=== PATIENT | female | born 1930 | race Caucasian/White ===

== ENCOUNTER 2017-01-20 12:31 | Day surgery (SDC) | payer OTHER ==
[2017-01-20] MEDS ORDERED: MIDAZOLAM 2 MG/2 ML VIAL IVP ONE (12:43)
[2017-01-20] MEDS ORDERED: NS 500 ML IV ONE (12:43)
[2017-01-20] MEDS ORDERED: PROPOFOL 200 MG/20 ML VIAL IVP ONE (12:43)
[2017-01-20] MEDS ORDERED: fentaNYL 100 MCG/2 ML INJ IVP ONE (12:43)
[2017-01-20 13:28] LABS: INR 2.29 (0.83-1.16); PROTIME(PATIENT) 25.4 SEC (12.0-15.0)
[2017-01-20 13:37] LABS: ANION GAP 9 mEq/L (8-16); CALCIUM 9.6 mg/dL (8.5-10.4); CARBON DIOXIDE 25 mEq/l (22-31); CHLORIDE 96 mEq/L (97-110); GLOMERULAR FILTRATION RATE 52; GLUCOSE 112 mg/dL (70-100); POTASSIUM 4.4 mEq/L (3.5-5.2); SODIUM 130 mEq/L (134-144)
[2017-01-20] MEDS ORDERED: LIDOCAINE 1% 5 ML SDV ONE (13:50)
[2017-01-20] MEDS ORDERED: SUCCINYLCHOLINE CHLORIDE*ANESTHESIA ONLY*200 MG/10 ML SYR IVP ONE (13:51)
--- NOTE | 2017-01-20 14:36 | CPEKG ---
Heart Rate: 60 RR Interval: 1000 P-R Interval: 224 QRSD Interval: 112 QT Interval: 472 QTC Interval: 472 QRS [place]: -59 T Wave [place]: 121 EKG Severity - ABNORMAL ECG - EKG Impression: ATRIAL-PACED RHYTHM EKG Impression: LVH WITH IVCD, LAD AND SECONDARY REPOL ABNRM EKG Impression: PROBABLE INFERIOR INFARCT, OLD EKG Impression: ATRIAL PACING IS NEW IN COMPARISON TO PRIOR ECG Electronically Signed By: Mikel Hatfield 21-Jan-2017 17:01:30
--- NOTE | 2017-01-20 14:55 | CPIP ---
DATE OF PROCEDURE: 01/20/2017 INDICATIONS: Symptomatic atrial fibrillation. DESCRIPTION OF PROCEDURE: N.p.o. status was confirmed, informed consent obtained, and timeout perfo rmed. The patient has had INRs greater than 2 for several months, therefore we elected not to proce ed with KIM prior to her cardioversion. Her INR today was also therapeutic, greater than 2. Sedation was achieved by Dr. Pike of the anesthesia service. The patient received a single 200 joule synchronized shock which converted her from atrial fibrillation to atrial pacing ventricular sensed rhythm. Her pacemaker was interrogated before and after the procedure with normal device fun ction. We did reduce her upper atrial pacing rate from 110 beats per minute to 80 beats per minute. CONCLUSIONS: Successful direct current cardioversion. Patient is in stable condition. Continue lo w-dose amiodarone. Follow up with Dr. Osvaldo Amezcua in 1 week as scheduled. Discussed with the nona ent's daughter. /[id number]/MODL
== END 2017-01-20 16:29 | disposition home or self-care (01) ==
LOC: FCATH 12:31
PROVIDERS: ATTEND Internal Medicine Cardiovascular Disease
PROC: 5A2204Z Restoration of Cardiac Rhythm, Single (ICD-10-PCS; principal; 2017-01-20)
DX: I48.91 Unspecified atrial fibrillation (principal); Z95.0 Presence of cardiac pacemaker; Z79.01 Long term (current) use of anticoagulants
CPT/HCPCS: J0330; J2704

== ENCOUNTER 2017-05-10 11:37 | Emergency (ER) | payer OTHER ==
--- NOTE | 2017-05-10 12:08 | EDPHY ---
H & P Stated Complaint: fall Source: Patient, RN/MD Exam Limitations: No limitations - Personal History Tetanus Vaccine Date: within last 10 yrs - Medical/Surgical History Hx Asthma: Yes Hx Chronic Respiratory Disease: Yes Hx Diabetes: No Hx Cardiac Disease: Yes Hx Renal Disease: No Hx Cirrhosis: No Hx Alcoholism: No Hx HIV/AIDS: No Hx Splenectomy or Spleen Trauma: No Other PMH: Afib/SSS- pacer/HTN/Hypothyroid/cancer- breast/GB/bladder tuck/lt masectomey/HYST/TA, tonsillectomy, heart cath 09 clean - Social History Smoking Status: Never smoked HPI/ROS: CHIEF COMPLAINT: Fall, headache HISTORY OF PRESENT ILLNESS: Patient reports by EMS with reports of fall. She was walking in her room when she lost her balance and fell. She reports falling backwards, hit her head on the carpet. She does have a headache. It is primarily posterior. Radiates to the front. [id number]. She has minor neck pain. She is placed in a C-collar by EMS. She has had no vomiting. No changes in vision. She says she has difficulty thinking at this time. No chest or back pain. No abdominal pain. She does have skin tears to both arms of the nasal bridge. She takes Coumadin for atrial fibrillation. She has no complaints of pain anywhere else other than with C-collar is bothering her. She is seen at time of arrival and no acute distress. REVIEW OF SYSTEMS: Ten systems reviewed and are negative unless otherwise noted in the HPI PERTINENT MEDICAL HISTORY: Atrial fibrillation on Coumadin SOCIAL HISTORY: Lives in independent living by herself EXAMINATION General Appearance: Alert, no distress Head: normocephalic, atraumatic. No Meza sign. No hematoma or depression. Eyes: Pupils equal and round, no conjunctival pallor or injection ENT, Mouth: Mucous membranes moist Neck: C-collar in place. Trachea is midline. Respiratory: Lungs are clear to auscultation. No wheezing, rhonchi or crackles. Cardiovascular: Regular rate with regular rhythm. Pulses intact distally symmetrically Gastrointestinal: Abdomen is soft and nontender Back: Kyphotic appearance. No crepitus, step-off or deformity. No bony tenderness of the thoracic or lumbar spine Neurological: GCS 15. Cranial nerves 2-12 grossly intact. A&O. No pronator drift Skin: Warm and dry, no rash. Multiple skin tears over the right forearm and left elbow that are superficial and non repairable. There is a superficial abrasion to the nasal bridge. No exposure of the bone or cartilage. Extremities: No bony tenderness of the extremities. Ranging all 4 extremities symmetrically to 1 other Psychiatric: Mood and affect normal DIFFERENTIAL DIAGNOSES: Including but not limited to closed head injury, intracranial hemorrhage, basilar skull fracture, skull fracture, concussion, skin tears, hematoma MDM: 12:00 p.m. Mechanical fall with closed head injury. The patient does take Coumadin for atrial fibrillation. She has abrasion to the forehead, skin tear to the right forearm, skin tear to left elbow. Resolve minor laceration to the nasal bridge. CT scans of the head and cervical spine and have been ordered and she remains in a C-collar. I have also ordered a chest x-ray. She is in no acute distress with mild hypertension 12:55 p.m. Notified by radiologist Dr. Springer. CT scans of the head and C-spine revealed chronic changes but no acute findings. Laboratory studies thus far reveal a mild hyponatremia, consistent with previous. She also has a subtherapeutic INR for her atrial fibrillation 1:10 p.m. I have re-evaluated the patient. Her daughter is at bedside now. I updated him regarding the CT findings of the chest x-ray interpretation by me. I also re-examine her nasal laceration as it has been irrigated. Superficial laceration that I have closed with skin glue without complication. We discussed attempting to ambulate her here in the emergency department to determine her disposition. She and her daughter are comfortable with this plan. 1:35 p.m. Patient has ambulated successfully here. She is stable for discharge home. Both the patient and her daughter her comfortable with this plan as well. She will follow up with primary care physician next week. Return to the emergency department for subsequent falls or any headache. She is discharged home stable condition. PROCEDURE: Laceration repair Consent: Verbal Location: Nasal bridge Length of repair: 0.75 cm Complexity: Simple Layer involvement: Single Anesthesia: None Irrigation: Extensive Debridement: No Procedure description: Following good anesthesia, the wound was copiously irrigated. Wound bed was explored and there is no foreign body noted. Wound borders were approximated well with good hemostasis. Tolerated well without complication. Suture/Staple material: Skin glue, Dermabond Wound care: Routine as discussed. avoid any topical agents to the skin glue site SUPERVISION: Patient was evaluated in conjunction with the supervising physician. Please see their note for details. (Los Auguste) Constitutional: Initial Vital Signs Temperature (C) 97.7 F 05/10/17 11:48 Heart Rate 71 05/10/17 11:48 Respiratory Rate 16 05/10/17 11:48 Blood Pressure 197/106 H 05/10/17 11:48 O2 Sat (%) 96 05/10/17 11:48 O2 Delivery Mode Room Air Allergies/Adverse Reactions: ciprofloxacin HCl [From Cipro] Allergy (Intermediate, Verified 07/31/15 11:48) sulfamethoxazole [From Bactrim] Allergy (Intermediate, Verified 07/31/15 11:48) trimethoprim [From Bactrim] Allergy (Intermediate, Verified 07/31/15 11:48) levofloxacin [From Levaquin in D5W] Allergy (Verified 07/31/15 11:48) Home Medications: Medication Instructions Recorded Famotidine [Pepcid 20 MG (*)] 20 mg PO BID PRN 07/29/12 Levothyroxine [Synthroid 112 mcg 112 mcg PO DAILY06 07/29/12 (*)] Multivitamins [Multivitamin (OTC)] 1 each PO DAILY@12 07/29/12 Albuterol [Proventil Inhaler HFA 2 puffs IH Q4 PRN 12/25/14 (*)] Beclomethasone Qvar 40 [Qvar 40 2 puffs IH BID 12/25/14 (*)] Acetaminophen [Tylenol] 500 mg PO Q6 PRN 07/31/15 Amiodarone HCl [Pacerone] 100 mg PO DAILY 07/31/15 Ascorbic Acid [Vitamin C 500 mg 500 mg PO DAILY@12 07/31/15 (*)] Cholecalciferol Vit D3 [Vitamin D3 1,000 units PO DAILY@07/31/15 (*)] Estradiol [Estradiol 1 MG (*)] 1 mg PO DAILY 07/31/15 Fluticasone Nasal [Flonase Nasal 1 sprays EACHNARE DAILY 07/31/15 [place]] Herbals/Supplements -Info Only 1 ea PO DAILY 07/31/15 Lisinopril [Zestril 5 mg (*)] 5 mg PO BID 07/31/15 Warfarin Sodium [Coumadin 2.5MG 2.5 mg PO TH@1600 07/31/15 (*)] Warfarin Sodium [Coumadin 5MG (*)] 5 mg PO SUMOTUWGIOVANNYA@1600 07/31/15 Medical Decision Making - Diagnostics Imaging Results: Imaging Impressions Head CT 05/10/17 11:57 Impression: 1. No acute intracranial findings. 2. Diffuse cerebral atrophy with periventricular and subcortical low attenuation consistent with chronic microvascular ischemic gliosis. Findings discussed with Los Auguste PA-C, 05/10/2017, at 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 If there is persistent pain or neurologic deficit, consider MRI and/or flexion and extension views if clinically indicated. Findings discussed with Los Auguste PA-C, 05/10/2017, at 1253 hours. Chest X-Ray 05/10/17 12:02 Impression: No acute findings in the chest. Other Provider: PHYSICIAN DOCUMENTATION: The patient was evaluated and managed by the Physician Scratcher and myself. I have reviewed the chart and agree with the findings and plan of care as documented. In addition, I examined the patient myself at 1215. History confirmed as mechanical fall going backwards hitting her head, on Coumadin for atrial fibrillation. Physical findings as follows: Alert, some posterior midline neck tenderness, extraocular motion intact, fluent speech. Plan for head CT scanning with trauma on Coumadin. 1337: Patient ambulated with walker, CT reviewed with the daughter including previous on PACs. Cervical spine clinically cleared by myself at this time. I am the secondary supervising physician. (Beto Hercules) - Data Points Laboratory Results: Laboratory Results 05/10/17 12:00 05/10/17 12:00 05/10/17 05/10/17 05/10/17 12:00 12:00 12:00 WBC 5.36 10^3/uL 10^3/uL (3.80-9.50) RBC 4.47 10^6/uL 10^6/uL (4.18-5.33) Hgb 14.6 g/dL g/dL (12.6-16.3) Hct 42.5 % % (38.0-47.0) MCV 95.1 fL fL (81.5-99.8) MCH 32.7 pg pg (27.9-34.1) MCHC 34.4 g/dL g/dL (32.4-36.7) RDW 13.0 % % (11.5-15.2) Plt Count 256 10^3/uL 10^3/uL (150-400) PT 21.0 SEC H SEC (12.0-15.0) INR 1.80 H (0.83-1.16) APTT 33.6 SEC SEC (23.0-38.0) Sodium 128 mEq/L L mEq/L (134-144) Potassium 4.2 mEq/L mEq/L (3.5-5.2) Chloride 93 mEq/L L mEq/L (97-110) Carbon Dioxide 23 mEq/l mEq/l (22-31) Anion Gap 12 mEq/L mEq/L (8-16) BUN 15 mg/dL mg/dL (7-23) Creatinine 0.9 mg/dL mg/dL (0.6-1.0) Estimated GFR 59 Glucose 119 mg/dL H mg/dL (70-100) Calcium 9.6 mg/dL mg/dL (8.5-10.4) Medications Given: Discontinued Medications Diphtheria/Tetanus/Acell Pertussis (Boostrix) 0.5 ml IM .ONCE ONE Stop: 05/10/17 12:17 Last Admin: 05/10/17 12:49 Dose: 0.5 ml Departure - Departure Disposition: Home, Routine, Self-Care Clinical Impression: Warfarin-induced coagulopathy Closed head injury Qualifiers: Encounter type: initial encounter Qualified Code(s): S09.90XA - Unspecified injury of head, initial encounter Cervical spine degeneration Qualifiers: 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 Return here for any headache, chest pain dizziness or syncope Referrals: Patient,NotPresent [Unknown] - As per Instructions Leila Capps MD [Primary Care Provider] - As per Instructions
[2017-05-10 12:13] LABS: HEMATOCRIT 42.5 % (38.0-47.0); HEMOGLOBIN 14.6 g/dL (12.6-16.3); MEAN CELL HEMOGLOBIN 32.7 pg (27.9-34.1); MEAN CELL HEMOGLOBIN CONCENTR. 34.4 g/dL (32.4-36.7); MEAN CELL VOLUME 95.1 fL (81.5-99.8); RED BLOOD CELL COUNT 4.47 10^6/uL (4.18-5.33)
[2017-05-10] MEDS ORDERED: TDAP ADULT 0.5 ML INJ (BOOSTRIX) IM ONE (12:16)
[2017-05-10 12:22] LABS: INR 1.8 (0.83-1.16)
[2017-05-10 12:23] LABS: APTT 33.6 SEC (23.0-38.0)
[2017-05-10 12:25] LABS: ANION GAP 12 mEq/L (8-16); CALCIUM 9.6 mg/dL (8.5-10.4); CARBON DIOXIDE 23 mEq/l (22-31); CHLORIDE 93 mEq/L (97-110); CREATININE 0.9 mg/dL (0.6-1.0); GLOMERULAR FILTRATION RATE 59; GLUCOSE 119 mg/dL (70-100); POTASSIUM 4.2 mEq/L (3.5-5.2); SODIUM 128 mEq/L (134-144)
[2017-05-10] MEDS ORDERED: SKIN ADHESIVE (DERMABOND) 1 EACH TP ONE (13:06)
[2017-05-10 14:07] VITALS: BP 162/101; PULSE 68; RESP 20; TEMP 98.4; O2SAT 99
== END 2017-05-10 14:07 | disposition home or self-care (01) ==
LOC: EDUNIT#
PROC: 09QKXZZ Repair Nasal Mucosa and Soft Tissue, External Approach (ICD-10-PCS; principal; 2017-05-10)
DX: S09.90XA Unspecified injury of head, initial encounter (principal); M47.812 Spondylosis without myelopathy or radiculopathy, cervical region; D68.9 Coagulation defect, unspecified; J45.909 Unspecified asthma, uncomplicated; I10 Essential (primary) hypertension; S01.21XA Laceration without foreign body of nose, initial encounter; Z79.01 Long term (current) use of anticoagulants; Z85.3 Personal history of malignant neoplasm of breast; Z23 Encounter for immunization; W01.198A Fall on same level from slipping, tripping and stumbling with subsequent striking against other object, initial encounter; Y99.8 Other external cause status; Y93.01 Activity, walking, marching and hiking

== ENCOUNTER 2017-05-23 17:42 | Inpatient (IN) | payer OTHER ==
[2017-05-23] MEDS ORDERED: fentaNYL 100 MCG/2 ML INJ IVP ONE (17:52)
[2017-05-23] MEDS ORDERED: NS 1,000 ML IV ONE (17:52)
--- NOTE | 2017-05-23 17:54 | EDPHY ---
H & P HPI/ROS: HPI CHIEF COMPLAINT: Limited trauma alert, mechanical trip and fall, on Coumadin HISTORY OF PRESENT ILLNESS: This patient 86-year-old female, significant past medical history atrial fibrillation, pacemaker, hyponatremia, she presents emergency room is limited trauma + trauma alert by EMS. She lives independently. She fell unwitnessed in her kitchen. With head strike. No LOC. She is complaining of left lateral hip pain. And a posterior headache. She denies neck pain, chest pain, shortness of breath. Denies abdominal pain. Main complaint left hip pain. Reported to me she tripped and fell or slipped in the kitchen. Upon arrival here in emergency room she has a GCS 15, she is alert or x4, she has left externally rotated short-leg. Past Medical History: Atrial fibrillation, reactive airway disease, hyponatremia Past Surgical History: Left chest pacemaker Social History: Denies daily use drugs alcohol tobacco products, lives independently. Family History: Noncontributory ROS REVIEW OF SYSTEMS: A comprehensive 10 point review of systems is otherwise negative aside from elements mentioned in the history of present illness. Exam Constitutional appears well nontoxic triage nursing summary reviewed, vital signs reviewed, awake/alert. Eyes normal conjunctivae and sclera, EOMI, PERRLA. HENT head/neck: In cervical spine immobilization, no midline cervical spine pain or step-offs, head atraumatic, no large hematoma or laceration, normal inspection, atraumatic, moist mucus membranes, no epistaxis, neck supple/ no meningismus, no raccoon eyes. Respiratory clear to auscultation bilaterally, normal breath sounds, no respiratory distress, no wheezing. Cardiovascular rate normal, regular rhythm, no murmur, no edema, distal pulses normal. Gastrointestinal soft, non-tender, no rebound, no guarding, normal bowel sounds, no distension, no pulsatile mass. Genitourinary no CVA tenderness. Musculoskeletal left leg; neurovascular intact distally good distal pulse, warm extremity, is externally rotated and shortened. She does have tender palpation over the left lateral hip, no midline vertebral tenderness, full range of motion, no calf swelling, no tenderness of extremities, no meningismus , good pulses, neurovascularly intact. Skin skin tear noted to left elbow. However elbow has full range of motion no bony crepitus, pink, warm, & dry, no rash, skin atraumatic. Neurologic awake, alert and oriented x 3, AAOx3, moves all 4 extremities equally, motor intact, sensory intact, CN II-XII intact, normal cerebellar, normal vision, normal speech. Psychiatric normal mood/affect. Heme/Lymph/Immune no lymphadenopathy. Differential Diagnosis: Includes but is not limited to in a particular order, multiple contusions, soft tissue injury, intracranial bleed, skull fracture, closed head injury, head bleed on Coumadin, left hip fracture. Medical Decision Making: Plan for this patient full ivf embryologist, EKG, IV establishment, IV fentanyl 50 mcg for pain control, CT head for trauma, on Coumadin, CT cervical spine, chest x-ray, left hip x-ray, left elbow x-ray. Re-evaluation: CT scan of the head without contrast . The results of the study are negative for acute traumatic in The study was read by Dr. Springer I viewed the images myself on the PACS system. CT scan of the cervical spine without contrast . The results of the study are negative for acute traumatic. The study was read by Dr. Springer. I viewed the images myself on the PACS system. ED x-ray chest: Pacemaker left chest, otherwise no acute traumatic injury. ED x-ray left hip intratrochanteric hip fracture. Interpreted by myself. ED x-ray left elbow: Negative for acute fracture. Do this patient's left hip fracture. I will consult Orthopedics. This patient will need to be admitted to the hospitalist service. 1840: Spoke with Trauma Surgery Dr. Cabral. Spoke with Agatha Montoya, all cough Orthopedics with Dr. Hola Montoya. They will see the patient. Make NPO at midnight. Most like it popped tomorrow. Needs medical clearance from hospitalist service anesthesia. INR elevated. I spoke with Trauma surgery Dr. Flores. He will see the patient. I have ordered this patient 2.5 mg IV vitamin K. NPO at midnight. Patient will be admitted to the hospitalist service for a left hip fracture. She has no other significant traumatic injury on exam. EKG interpretation by me on record in [facility] system. Impression time of EKG 1841, atrially paced rhythm rate of 63. MO Interval 220. Otherwise unremarkable EKG. 1849: I did update the daughter at bedside understands she has a hip fracture. Orthopedics been consult Trauma surgery is been consult. Hospitalist has been consulted. Patient be admitted for left hip fracture. Source: Patient - Personal History Tetanus Vaccine Date: within last 10 yrs - Medical/Surgical History Hx Asthma: Yes Hx Chronic Respiratory Disease: Yes Hx Diabetes: No Hx Cardiac Disease: Yes Hx Renal Disease: No Hx Cirrhosis: No Hx Alcoholism: No Hx HIV/AIDS: No Hx Splenectomy or Spleen Trauma: No Other PMH: Afib/SSS- pacer/HTN/Hypothyroid/cancer- breast/GB/bladder tuck/lt masectomey/HYST/TA, tonsillectomy, heart cath 09 clean - Social History Smoking Status: Never smoked Allergies/Adverse Reactions: ciprofloxacin HCl [From Cipro] Allergy (Intermediate, Verified 05/23/17 18:13) sulfamethoxazole [From Bactrim] Allergy (Intermediate, Verified 05/23/17 18:13) trimethoprim [From Bactrim] Allergy (Intermediate, Verified 05/23/17 18:13) levofloxacin [From Levaquin in D5W] Allergy (Verified 05/23/17 18:13) Home Medications: Medication Instructions Recorded Famotidine [Pepcid 20 MG (*)] 20 mg PO BID PRN 07/29/12 Levothyroxine [Synthroid 112 mcg 112 mcg PO DAILY06 07/29/12 (*)] Multivitamins [Multivitamin (OTC)] 1 each PO DAILY@12 07/29/12 Albuterol [Proventil Inhaler HFA 2 puffs IH Q4 PRN 12/25/14 (*)] Beclomethasone Qvar 40 [Qvar 40 2 puffs IH BID 12/25/14 (*)] Acetaminophen [Tylenol] 500 mg PO Q6 PRN 07/31/15 Amiodarone HCl [Pacerone] 100 mg PO DAILY 07/31/15 Ascorbic Acid [Vitamin C 500 mg 500 mg PO DAILY@07/31/15 (*)] Cholecalciferol Vit D3 [Vitamin D3 1,000 units PO DAILY@07/31/15 (*)] Estradiol [Estradiol 1 MG (*)] 1 mg PO DAILY 07/31/15 Fluticasone Nasal [Flonase Nasal 1 sprays EACHNARE DAILY 07/31/15 [place]] Herbals/Supplements -Info Only 1 ea PO DAILY 07/31/15 Lisinopril [Zestril 5 mg (*)] 5 mg PO BID 07/31/15 Warfarin Sodium [Coumadin 2.5MG 2.5 mg PO TH@1600 07/31/15 (*)] Warfarin Sodium [Coumadin 5MG (*)] 5 mg PO SUMOTUWGIOVANNYA@1600 07/31/15 Medical Decision Making - Diagnostics Imaging Results: Imaging Impressions Cervical Spine CT 05/23/17 17:51 Impression: Stable CT cervical spine since May 10, 2017,with no acute posttraumatic abnormality identified. If symptoms persist and clinical suspicion warrants, consider MRI. Findings discussed with Aubrey Peck MD, 05/23/2017, at [address] 05/23/17 17:51 Impression: 1. No acute intracranial findings. 2. Diffuse cerebral atrophy with periventricular and subcortical low attenuation consistent with chronic microvascular ischemic gliosis. - Data Points Laboratory Results: Laboratory Results 05/23/17 18:11 05/23/17 18:11 05/23/17 05/23/17 05/23/17 18:11 18:11 18:11 WBC 6.75 10^3/uL 10^3/uL (3.80-9.50) RBC 4.20 10^6/uL 10^6/uL (4.18-5.33) Hgb 13.9 g/dL g/dL (12.6-16.3) Hct 40.1 % % (38.0-47.0) MCV 95.5 fL fL (81.5-99.8) MCH 33.1 pg pg (27.9-34.1) MCHC 34.7 g/dL g/dL (32.4-36.7) RDW 13.3 % % (11.5-15.2) Plt Count 224 10^3/uL 10^3/uL (150-400) MPV 8.9 fL fL (8.7-11.7) Neut % (Auto) 77.7 % H % (39.3-74.2) Lymph % (Auto) 13.8 % L % (15.0-45.0) Rains % (Auto) 6.4 % % (4.5-13.0) Eos % (Auto) 0.7 % % (0.6-7.6) Baso % (Auto) 0.7 % % (0.3-1.7) Nucleat RBC Rel Count 0.0 % % (0.0-0.2) Absolute Neuts (auto) 5.24 10^3/uL 10^3/uL (1.70-6.50) Absolute Lymphs (auto) 0.93 10^3/uL L 10^3/uL (1.00-3.00) Absolute Monos (auto) 0.43 10^3/uL 10^3/uL (0.30-0.80) Absolute Eos (auto) 0.05 10^3/uL 10^3/uL (0.03-0.40) Absolute Basos (auto) 0.05 10^3/uL 10^3/uL (0.02-0.10) Absolute Nucleated RBC 0.00 10^3/uL 10^3/uL (0-0.01) Immature Gran % 0.7 % % (0.0-1.1) Immature Gran # 0.05 10^3/uL 10^3/uL (0.00-0.10) PT 20.7 SEC H SEC (12.0-15.0) INR 1.77 H (0.83-1.16) APTT 30.9 SEC SEC (23.0-38.0) Sodium 128 mEq/L L mEq/L (134-144) Potassium 4.0 mEq/L mEq/L (3.5-5.2) Chloride 93 mEq/L L mEq/L (97-110) Carbon Dioxide 26 mEq/l mEq/l (22-31) Anion Gap 9 mEq/L mEq/L (8-16) BUN 17 mg/dL mg/dL (7-23) Creatinine 0.9 mg/dL mg/dL (0.6-1.0) Estimated GFR 59 Glucose 144 mg/dL H mg/dL (70-100) Calcium 9.5 mg/dL mg/dL (8.5-10.4) Troponin I < 0.012 ng/mL ng/mL (0-0.034) Medications Given: Discontinued Medications Fentanyl (Sublimaze) 50 mcg IVP EDNOW ONE Stop: 05/23/17 17:53 Last Admin: 05/23/17 18:05 Dose: 50 mcg Sodium Chloride (Ns) 1,000 mls @ 0 mls/hr IV ONCE ONE; Wide Open PRN Reason: Protocol Stop: 05/23/17 17:53 Last Admin: 05/23/17 18:39 Dose: 1,000 mls Departure - Departure Disposition: [facility] Inpatient Acute Clinical Impression: Hip fracture Qualifiers: Encounter type: initial encounter Fracture type: closed Laterality: left Qualified Code(s): S72.002A - Fracture of unspecified part of neck of left femur , initial encounter for closed fracture Condition: Fair
[2017-05-23 18:30] LABS: % IMMATURE GRANULYOCYTES 0.7 % (0.0-1.1); ABSOLUTE IMMATURE GRANULOCYTES 0.05 10^3/uL (0.00-0.10); ADD DIFF? NO; ADD MORPH? NO; ADD SCAN? NO; ATYPICAL LYMPHOCYTE FLAG 10 (0-99); FRAGMENT RBC FLAG 0 (0-99); HEMATOCRIT 40.1 % (38.0-47.0); HEMOGLOBIN 13.9 g/dL (12.6-16.3); LEFT SHIFT FLG 0 (0-99); LIPEMIA HEMOLYSIS FLAG 90 (0-99); MEAN CELL HEMOGLOBIN 33.1 pg (27.9-34.1); MEAN CELL HEMOGLOBIN CONCENTR. 34.7 g/dL (32.4-36.7); MEAN CELL VOLUME 95.5 fL (81.5-99.8); MEAN PLATELET VOLUME 8.9 fL (8.7-11.7); PLATELET CLUMPS FLAG 0 (0-99); PLATELET COUNT 224 10^3/uL (150-400); RED CELL DISTRIBUTION WIDTH 13.3 % (11.5-15.2)
[2017-05-23 18:36] LABS: INR 1.77 (0.83-1.16); PROTIME(PATIENT) 20.7 SEC (12.0-15.0)
[2017-05-23 18:37] LABS: ANION GAP 9 mEq/L (8-16); APTT 30.9 SEC (23.0-38.0); CALCIUM 9.5 mg/dL (8.5-10.4); CARBON DIOXIDE 26 mEq/l (22-31); CHLORIDE 93 mEq/L (97-110); CREATININE 0.9 mg/dL (0.6-1.0); GLOMERULAR FILTRATION RATE 59; GLUCOSE 144 mg/dL (70-100); SODIUM 128 mEq/L (134-144)
[2017-05-23] MEDS ORDERED: ONDANSETRON DISINTEGRATING 4 MG TAB PO PRN (18:38)
[2017-05-23] MEDS ORDERED: ONDANSETRON 4 MG/2 ML VIAL IVP PRN (18:38)
[2017-05-23] MEDS ORDERED: PHYTONADIONE 2.5 MG in NS 50 ML IV ONE (18:39)
--- NOTE | 2017-05-23 18:44 | CPEKG ---
Heart Rate: 63 RR Interval: 952 P-R Interval: 220 QRSD Interval: 118 QT Interval: 436 QTC Interval: 447 QRS [place]: -61 T Wave [place]: 104 EKG Severity - ABNORMAL ECG - EKG Impression: ATRIAL-PACED RHYTHM EKG Impression: LVH WITH IVCD, LAD AND SECONDARY REPOL ABNRM Electronically Signed By: Aubrey Peck 23-May-2017 20:59:09
[2017-05-23] MEDS ORDERED: NS 1,000 ML IV SCH (18:45)
[2017-05-23 18:49] LABS: TROPONIN I < 0.012 ng/mL (0-0.034)
--- NOTE | 2017-05-23 19:59 | PDCONSULT ---
Political Geographer Note: Trauma Service Consult CC: L hip pain HPI: 86 y/o female living independently has been falling more frequently. Today she lost her balance and fell to her left side striking her head, left elbow and left hip. She was brought to [facility] ED as a LTA+. She reports left hip pain and is experiencing some urinary and fecal urgency. She denies LOC, MCCLOUD, visual disturbances. She denies paresthesias/weakness. She does report increasing loss of balance. PMH: pacemaker, HTN, reactive airway disease allergies: Quinilones, Sulfa meds: Amiodarone, Coumadin, Lisinopril, Albuterol, Famotidine non-smoker, denies EtOH SH: here with her daughter, Linda, who is a FP PA ROS: denies chest pain, nausea, MCCLOUD, visual disturbances, back pain, weakness, She is experiencing urinary and fecal urgency PE: pleasant elderly female in mild distress HEENT: no cervical spine tenderness trachea midline, NCAT Lungs: clear w/out wheezing CVS: IRR w/ 3-4/6 HSM Abd: soft/no focal tenderness tender left hip/LLE internal rotation pulses: F +2/+2 DP +1/+1 PT 0/0 neuro: O x 3, no focal motor sensory defecits, gait testing not possible skin: abrasion left elbow/skin on back intact wbc 6.7 Hgb 13.9 Hct 40% plat 224K PT 20.7 INR 1.7 Na+ 128 K+ 4.0 Cl 93 Co2 26 glucose 144 creat. 0.9 Imaging reviewed on PACS: no acute cervical spine fracture/DDD extensive-no change compare to 05/10/17 Left elbow no fracture Left Hip IT fracture/no obvious pelvic fracture Imp: 1. Left hip fracture s/p fall at home 2. A-fib 3. pacemaker 4. HTN 5. reactive airway disease 6.anticoagulation 7. Hyponatremia Rec: Ortho Consult/reverse Coumadin with vit K SCD's, may need Kimberlyn Cabral MD, FACS
[2017-05-23] MEDS ORDERED: ALBUTEROL 60 PUFFS/8 GM MDI IH PRN (20:00)
[2017-05-23] MEDS ORDERED: hydrALAZINE 10 MG TAB PO PRN (20:28)
[2017-05-23] MEDS ORDERED: ALBUTEROL 200 PUFFS/18 GM MDI IH PRN (20:34)
--- NOTE | 2017-05-23 20:58 | GHP ---
[f rep st] HISTORY AND PHYSICAL DATE OF ADMISSION: 05/23/2017 CHIEF COMPLAINT: Left hip pain. HISTORY OF PRESENT ILLNESS: An 86-year-old female with a history of atrial fibrillation status post permanent pacemaker placement, who was in her kitchen today and stumbled and fell. Patient obtaine d a left intertrochanteric hip fracture and was brought to the emergency department for evaluation. In the ED, the patient is complaining of severe left-sided hip pain. Denies any preceding dizzines s, palpitations, chest pain, shortness of breath. Currently denies nausea or abdominal discomfort. Denies any headache, recent lower extremity edema, recent subjective fevers or chills. PAST MEDICAL HISTORY: 1. Atrial fibrillation on anticoagulation status post permanent pacemaker placement. 2. Chronic diastolic heart failure. 3. Hypertension. 4. Hypothyroidism. 5. 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 SOCIAL HISTORY: Negative for tobacco, alcohol, or illicit drugs. FAMILY HISTORY: Negative for thyroid dysfunction. REVIEW OF SYSTEMS: A 10-point review of systems is negative with the exception of that reported in the HPI. PHYSICAL EXAMINATION: VITAL SIGNS: Blood pressure 204/97, heart rate 68, respiratory rate 18, 95% on room air, 36.4. GENERAL: This is a very pleasant, elderly female, lying flat in bed. HEENT: N otable for dry mucous membranes. Eye exam is negative for any icterus. CARDIAC: Patient is regula r rate and rhythm. Systolic murmur is appreciated. PULMONARY: Patient has good respiratory effort , is clear to auscultation on anterior auscultation. GASTROINTESTINAL: Positive bowel sounds. ABD OMEN: Soft and nontender in all 4 quadrants. MUSCULOSKELETAL: No lower extremity edema is appreci ated. Patient has pain on passive range of motion of her left lower extremity. NEUROLOGIC: She is alert and oriented x3. PSYCHIATRIC: She is pleasant and cooperative on interview and examination. LABORATORY AND X-RAY DATA: Hip x-ray, which I personally reviewed and interpreted, shows a left-kaycee ed femoral neck fracture. Noncontrast CT of the head shows no acute intracranial findings. Chest x -ray, which I personally reviewed and interpreted, shows no acute edema. White count 6.7. INR 1.77 . Sodium 128, creatinine 0.9. Troponin less than 0.012. ASSESSMENT AND PLAN: This is an 86-year-old female presenting status left femur fracture. 1. Acute left femur fracture. Patient will be made n.p.o. after midnight for intraoperative fixati on by Dr. Montoya in the morning. She has received 2.5 mg of vitamin K to reverse her chronic ant icoagulation and will continue p.r.n., p.o., and IV pain medications preoperatively. 2. Atrial fibrillation. Patient is currently rate controlled. Again, has received some vitamin K reversal for her anticoagulation. We can resume none postoperatively. 3. Hyponatremia, suspect may be hypovolemic in nature. Patient received normal saline bolus in the emergency department. Will start normal saline maintenance as she will be n.p.o. after midnight. Can recheck her BMP in the morning. 4. Pulmonary fibrosis. Will continue patient's home pulmonary toilet, which includes QVAR and p.r. n. albuterol. 5. Uncontrolled hypertension. The patient's systolic blood pressures are very high in the emergenc y department and I suspect secondary to pain. She is quite uncomfortable during my evaluation. We will continue her home dosing of blood pressure medications with a p.r.n. hydralazine. Ideally, I w ould like to see how her pressures settle out after pain control is improved. 6. Prophylaxis. Holding for the operating room. 7. Diet. N.p.o. after midnight for surgery. 8. Disposition. Expecting greater than 2 midnights as the patient will require intraoperative fixa tion of her fracture and then postop recovery. I discussed the case with the emergency room madeleine partida and patient will be triaged to the medical-surgical floor for care. /[id number]/MODL
[2017-05-23] MEDS ORDERED: LISINOPRIL 2.5 MG TAB PO SCH (21:00)
[2017-05-23] MEDS: HYDROCODONE/APAP 5/325 TAB PO PRN (21:07)
[2017-05-23] MEDS: HYDROmorphONE/DILAUDID 1 MG/ML SYR IVP PRN (21:07)
[2017-05-23] MEDS: LISINOPRIL 5 MG TAB PO SCH (22:14)
[2017-05-24] MEDS: HYDROCODONE/APAP 5/325 TAB PO PRN ×4 (00:38→22:50)
[2017-05-24] MEDS: BECLOMETHASONE QVAR 40 MDI IH SCH ×3 (00:43→20:20)
[2017-05-24 05:19] LABS: % IMMATURE GRANULYOCYTES 0.6 % (0.0-1.1); ABSOLUTE IMMATURE GRANULOCYTES 0.05 10^3/uL (0.00-0.10); ADD DIFF? NO; ADD MORPH? NO; ADD SCAN? NO; ATYPICAL LYMPHOCYTE FLAG 0 (0-99); FRAGMENT RBC FLAG 0 (0-99); HEMATOCRIT 36.5 % (38.0-47.0); HEMOGLOBIN 12.5 g/dL (12.6-16.3); LEFT SHIFT FLG 0 (0-99); LIPEMIA HEMOLYSIS FLAG 90 (0-99); MEAN CELL HEMOGLOBIN 32.8 pg (27.9-34.1); MEAN CELL HEMOGLOBIN CONCENTR. 34.2 g/dL (32.4-36.7); MEAN CELL VOLUME 95.8 fL (81.5-99.8); MEAN PLATELET VOLUME 9.3 fL (8.7-11.7); PLATELET CLUMPS FLAG 0 (0-99); PLATELET COUNT 198 10^3/uL (150-400); RED BLOOD CELL COUNT 3.81 10^6/uL (4.18-5.33); RED CELL DISTRIBUTION WIDTH 13.2 % (11.5-15.2)
[2017-05-24 05:27] LABS: INR 1.72 (0.83-1.16); PROTIME(PATIENT) 20.2 SEC (12.0-15.0)
[2017-05-24 05:31] LABS: ANION GAP 9 mEq/L (8-16); CALCIUM 9.2 mg/dL (8.5-10.4); CARBON DIOXIDE 22 mEq/l (22-31); CHLORIDE 99 mEq/L (97-110); CREATININE 0.8 mg/dL (0.6-1.0); GLOMERULAR FILTRATION RATE > 60; GLUCOSE 109 mg/dL (70-100); POTASSIUM 4.4 mEq/L (3.5-5.2); SODIUM 130 mEq/L (134-144)
[2017-05-24] MEDS: LEVOTHYROXINE 112 MCG TAB PO SCH (06:20)
[2017-05-24 07:08] LABS: COLOR YELLOW; LEUKOCYTE ESTERASE,URINE 3+ (NEGATIVE); NITRITE,URINE NEGATIVE (NEGATIVE)
[2017-05-24 07:18] LABS: BACTERIA 3+ /hpf (NONE SEEN); WBC,URINE 50-182 /hpf (0-3); YEAST PRESENT /hpf (NONE SEEN)
--- NOTE | 2017-05-24 08:45 | SOAPPROG ---
SOAP Progress Note Assessment/Plan: Assessment: Plan: Subjective: hd 2 l femoral neck fx from fall neck non tender awake and alert lungs clear, heart nml s1s2 no m no carotid bruit abd soft l foot warm, excellent pulse. inr still 1.72 this am. will likely need ffp prior to surgery. plan: orif l hip today. Objective: Vital Signs Temp Pulse Resp BP Pulse Ox 37.1 C 60 15 144/77 H 98 05/24/17 04:00 05/24/17 04:00 05/24/17 04:00 05/24/17 04:00 05/24/17 04:00 Laboratory Results 05/24/17 04:20 05/24/17 04:20 05/23/17 05/24/17 05/25/17 05:59 05:59 05:59 Intake Total 700 Output Total 900 Balance -200 PT 20.2 SEC (12.0-15.0) H 05/24/17 04:20 INR 1.72 (0.83-1.16) H 05/24/17 04:20 ICD10 Worksheet Patient Problems: Problems Problem Status Onset Hip fracture Acute Atrial fibrillation Acute
[2017-05-24] MEDS: AMIODARONE HCL 200 MG TAB PO SCH (08:54)
[2017-05-24] MEDS: LISINOPRIL 5 MG TAB PO SCH ×2 (08:55→20:18)
[2017-05-24] MEDS ORDERED: AMIODARONE HCL 100 MG PO SCH (09:00)
--- NOTE | 2017-05-24 10:54 | GCON ---
[f rep st] CONSULTATION ORTHOPEDIC CONSULTATION REFERRING PHYSICIAN: Lisa Garcia MD REASON FOR CONSULTATION: For evaluation of a left hip fracture. HISTORY OF PRESENT ILLNESS: The patient is an 86-year-old female, who has a history of atrial fibri llation, with a pacemaker, who fell, was unable to walk, has complaint of left hip pain, was brought into the emergency room. Hit her head and was evaluated by the trauma service. Denies any pain in any other extremity. PAST MEDICAL HISTORY: Significant for atrial fibrillation, diastolic heart failure, hypertension, h ypothyroidism, pulmonary fibrosis. SOCIAL HISTORY: She is negative for tobacco, alcohol or illicit drugs. FAMILY HISTORY: Noncontributory. PHYSICAL EXAMINATION: GENERAL: Patient is in no acute distress, pleasant and cooperative with the exam. EXTREMITIES: Left lower extremity revealed shortened and externally rotated. She has pain w ith gentle log roll. She is neurovascularly intact with brisk capillary refill. IMAGING: X-rays are reviewed, which show a displaced left femoral neck fracture. At this time discussed benefits of operative and nonoperative intervention with the patient, includi ng bleeding, infection, damage to nerve and vessels, and need for further surgery, as well as hip garay rgery risks such as dislocation, fracture and leg length discrepancy. The patient expressed underst anding. We will obtain consent prior to surgery. At this time, plan for a left total hip arthropla sty when patient is clear, her INR is 1.7 currently. She needs to continue her vitamin K supplement ation, in order to try to get that down. Hopefully, closer to 1.3 prior to proceeding with surgery. Tentative plan will be to take the person to surgery on 05/25/2017, for a left total hip, pending her lab results and clearance by hospitalist service. /[id number]/MODL
[2017-05-24] MEDS ORDERED: PHYTONADIONE 2.5 MG/2.5 ML ORAL UDL PO ONE (13:05)
--- NOTE | 2017-05-24 14:44 | HOSPPROG ---
Hospitalist Progress Note Assessment/Plan: Patient is an 86-year-old female with a history of atrial fibrillation status post pacemaker placement. She was brought into the emergency room for further evaluation after she fell in her kitchen. Was noted that she had an acute left femur fracture. Today is my 1st encounter with the patient. Chart reviewed. * Acute left femur fracture to go to OR once her INR is less than 1.3 * atrial fibrillation oral anticoagulation on hold. Rate controlled pacer in place * pulmonary fibrosis thought to be secondary to amiodarone *Hyponatremia will check labs in a.m. * uncontrolled hypertension on JESSICA/suspect much of her pain is causing elevation in bp *hypothyroidism: Synthroid *Chronic diastolic hear failure doesn't appear to be in failure room air *dvt prophylaxis: pumps and teds *Plan: fluids tonight, OR in the morning/ if INR is elevated in a.m., can order FFP prior too OR Subjective: Lizett has no complaints/ resting comfortably. Objective: Vital Signs Temp Pulse Resp BP Pulse Ox 36.7 C 61 12 171/80 H 92 05/24/17 08:49 05/24/17 12:27 05/24/17 12:27 05/24/17 12:27 05/24/17 12:27 Laboratory Results 05/24/17 04:20 05/24/17 04:20 05/23/17 05/24/17 05/25/17 05:59 05:59 05:59 Intake Total 700 Output Total 900 700 Balance -200 -700 PT 20.2 SEC (12.0-15.0) H 05/24/17 04:20 INR 1.72 (0.83-1.16) H 05/24/17 04:20 - Physical Exam Constitutional: not in pain, uncomfortable Eyes: PERRL Ears, Nose, Mouth, Throat: hard of hearing Cardiovascular: regular rate and rhythym Respiratory: no respiratory distress Gastrointestinal: normoactive bowel sounds Genitourinary: lundberg in urethra Skin: warm Musculoskeletal: other (left leg shortened and externally rotated) Neurologic: AAOx3 Psychiatric: interacting appropriately, not anxious ICD10 Worksheet Patient Problems: Problems Problem Status Onset Hip fracture Acute Atrial fibrillation Acute
[2017-05-24] MEDS: hydrALAZINE 20 MG/ML VIAL IVP PRN (16:32)
[2017-05-24] MEDS: FAMOTIDINE 20 MG TAB PO SCH (17:21)
[2017-05-25] MEDS: hydrALAZINE 20 MG/ML VIAL IVP PRN (05:00)
[2017-05-25 05:15] LABS: INR 1.3 (0.83-1.16); PROTIME(PATIENT) 16.2 SEC (12.0-15.0)
[2017-05-25 05:37] LABS: ANION GAP 10 mEq/L (8-16); CALCIUM 9.3 mg/dL (8.5-10.4); CARBON DIOXIDE 22 mEq/l (22-31); CHLORIDE 96 mEq/L (97-110); CREATININE 0.8 mg/dL (0.6-1.0); GLOMERULAR FILTRATION RATE > 60; GLUCOSE 84 mg/dL (70-100); POTASSIUM 3.9 mEq/L (3.5-5.2); SODIUM 128 mEq/L (134-144)
[2017-05-25] MEDS ORDERED: ROPIVACAINE 0.2% 80 MG, EPINEPHrine 0.2 MG, KETOROLAC TROMETHAMINE 30 MG in BAG 0 ML IU ONE (06:00)
[2017-05-25] MEDS ORDERED: ceFAZolin 2 GM/DEXTROSE 100 ML IV ONE (06:00)
[2017-05-25] MEDS ORDERED: TRANEXAMIC ACID 3,000 MG in NS 50 ML IRR ONE (06:00)
[2017-05-25] MEDS ORDERED: DEXAMETHASONE 4 MG/ML VIAL IVP ONE (06:00)
[2017-05-25] MEDS: LEVOTHYROXINE 112 MCG TAB PO SCH (06:02)
[2017-05-25] MEDS ORDERED: VANCOMYCIN 1 GM VIAL ONE ×2 (06:04→07:30)
[2017-05-25] MEDS ORDERED: TRANEXAMIC ACID 3,000 MG/50 ML BAG IRR ONE (06:04)
[2017-05-25] MEDS: BECLOMETHASONE QVAR 40 MDI IH SCH ×2 (07:23→20:28)
[2017-05-25] MEDS ORDERED: DEXAMETHASONE 4 MG/ML VIAL ONE (07:32)
[2017-05-25] MEDS ORDERED: CEFAZOLIN 2 GM/DEXTROSE/100 ML BAG IV ONE (07:32)
[2017-05-25] MEDS ORDERED: LR 1,000 ML IV ONE (07:37)
[2017-05-25] MEDS: AMIODARONE HCL 200 MG TAB PO SCH (07:49)
[2017-05-25] MEDS ORDERED: fentaNYL 100 MCG/2 ML INJ ONE (08:07)
[2017-05-25] MEDS ORDERED: MIDAZOLAM 2 MG/2 ML VIAL ONE (08:07)
[2017-05-25] MEDS ORDERED: PROPOFOL/EMULSION 500 MG/50 ML BOTTLE IV ONE (08:08)
[2017-05-25] MEDS: LISINOPRIL 5 MG TAB PO SCH ×2 (08:26→21:07)
--- NOTE | 2017-05-25 08:55 | PDANEPAE ---
ANE History of Present Illness fx left hip no loc ANE Past Medical History - Cardiovascular History Hx Arrhythmias: Yes Hx Chest Pain: No Hx Coronary Artery / Peripheral Vascular Disease: No Hx CHF / Valvular Disease: No Cardiovascular History Comment: atrial fib pacer in place and working, on anticoagulation - Pulmonary History Hx COPD: Yes Hx Asthma/Reactive Airway Disease: No Hx Recent Upper Respiratory Infection: No Hx Oxygen in Use at Home: Yes O2 in Use at Home (L/minute): 2 Hx Sleep Apnea: No Sleep Apnea Screening Result - Last Documented: Negative - Endocrine History Hx Diabetes: No - Chronic Pain History Chronic Pain: No ANE Review of Systems - Exercise capacity Exercise capacity: <4 METS - Pacemaker Pacemaker Electrician Journeyman Wireman: [employer] (for pacer check after surgery) Pacemaker Model: 5820 Date Pacemaker Last Checked: 3-1/2 months ago ANE Patient History - Allergies Allergies/Adverse Reactions: ciprofloxacin HCl [From Cipro] Allergy (Intermediate, Verified 05/23/17 18:13) sulfamethoxazole [From Bactrim] Allergy (Intermediate, Verified 05/23/17 18:13) trimethoprim [From Bactrim] Allergy (Intermediate, Verified 05/23/17 18:13) levofloxacin [From Levaquin in D5W] Allergy (Verified 05/23/17 18:13) - Home Medications Home Medications: Levothyroxine [Synthroid 112 mcg (*)] 112 mcg PO DAILY06 07/29/12 [Last Taken ] Multivitamins [Multivitamin (OTC)] 1 each PO DAILY@12 07/29/12 [Last Taken 05/23] Albuterol [Proventil Inhaler HFA (*)] 2 puffs IH Q4 PRN 12/25/14 [Last Taken Unknown] Beclomethasone Qvar 40 [Qvar 40 (*)] 2 puffs IH BID 12/25/14 [Last Taken 1 Day Ago] Acetaminophen [Tylenol] 500 mg PO Q6 PRN 07/31/15 [Last Taken 07/30/15] Amiodarone HCl [Pacerone] 100 mg PO DAILY 07/31/15 [Last Taken 05/23/17] Ascorbic Acid [Vitamin C 500 mg (*)] 500 mg PO DAILY@12 07/31/15 [Last Taken ] Cholecalciferol Vit D3 [Vitamin D3 (*)] 1,000 units PO DAILY@12 07/31/15 [Last Taken 05/23/17] Estradiol [Estradiol 1 MG (*)] 1 mg PO DAILY 07/31/15 [Last Taken 05/23/17] Herbals/Supplements -Info Only 1 ea PO DAILY 07/31/15 [Last Taken Unknown] Warfarin Sodium [Coumadin 2.5MG (*)] 2.5 mg PO MOWEFR 07/31/15 [Last Taken 07/27] Warfarin Sodium [Coumadin 5MG (*)] 5 mg PO SUTUTHSA 07/31/15 [Last Taken 1 Day Ago] Famotidine [Pepcid] 5 mg PO DAILY@18 05/23/17 [Last Taken 05/22/17] Lisinopril [Zestril 2.5 mg (*)] 2.5 mg PO BID 05/23/17 [Last Taken 05/23/17] - NPO status NPO Since - Liquids (Date): 05/24/17 NPO Since - Liquids (Time): 00:01 NPO Since - Solids (Date): 05/23/17 NPO Since - Solids (Time): 22:00 - Smoking Hx Smoking Status: Never smoked ANE Labs/Vital Signs - Labs Result Diagrams: 05/24/17 04:20 05/25/17 04:27 - Vital Signs Blood Pressure: 94/78 Heart Rate: 75 Respiratory Rate: 12 O2 Sat (%): 94 Height: 165.1 cm Weight: 54.431 kg
[2017-05-25] MEDS ORDERED: NALOXONE HCL 0.4 MG/ML INJ IVP PRN (09:06)
[2017-05-25] MEDS ORDERED: HYDROmorphONE/DILAUDID 1 MG/ML SYR IVP PRN ×2 (09:08→09:13)
[2017-05-25] MEDS ORDERED: MAGNESIUM HYDROXIDE 30 ML UDCUP PO PRN (09:29)
[2017-05-25] MEDS ORDERED: LACTULOSE 20 GM/30 ML UDCUP PO PRN (09:29)
[2017-05-25] MEDS ORDERED: PROMETHAZINE HCL 25 MG SUPPR PR PRN (09:29)
[2017-05-25] MEDS ORDERED: diphenhydrAMINE 25 MG CAP PO PRN (09:29)
[2017-05-25] MEDS ORDERED: PROMETHAZINE HCL 25 MG/ML INJ IVP PRN (09:29)
[2017-05-25] MEDS ORDERED: METOCLOPRAMIDE 10 MG/2 ML VIAL IVP PRN (09:29)
[2017-05-25] MEDS ORDERED: BISACODYL 10 MG SUPP PR PRN (09:29)
[2017-05-25] MEDS ORDERED: DIPHENOXYLATE/ATROPINE LOMOTIL 1 TAB PO PRN (09:29)
--- NOTE | 2017-05-25 09:29 | POSTOPPROG ---
Post Op Note Date of Operation: 05/25/17 Surgeon: Ciera Montoya Reservoir Engineer: Agatha Montoya PAc Anesthesiologist: Lissett Anesthesia: GET(General Endotracheal) Pre-op Diagnosis: L femoral neck fx displaced Post-op Diagnosis: same Indication: pain Procedure: L BRIJESH Findings: fx femoral neck displaced Inf/Abcess present in the surg proc area at time of surgery?: No EBL: 100-500
[2017-05-25] MEDS ORDERED: HYDROmorphONE/DILAUDID 1 MG/ML SYR ONE (09:53)
--- NOTE | 2017-05-25 10:12 | GOP ---
[f rep st] OPERATIVE REPORT DATE OF OPERATION: 05/23/2017 SURGEON: Asif Montoya MD CONCRETE BUCKET HOOKER: REAL Taylor ANESTHESIA: General. PREOPERATIVE DIAGNOSIS: Left displaced femoral neck fracture. POSTOPERATIVE DIAGNOSIS: Left displaced femoral neck fracture. PROCEDURE PERFORMED: Total hip arthroplasty with x-ray. FINDINGS: ESTIMATED BLOOD LOSS: 200 cc. INDICATIONS: The patient has progressively worsening arthritis of the hip which has failed medical management. The patient understands the treatment options including continued non-operative care and has selected surgical intervention. The patient has decided to undergo total hip arthroplasty via the direct anterior approach, understanding the risks of the procedure including , but not limited to, neurovascular injury, infection, persistent pain, component wear and loosening, deep venous thrombosis, pulmonary embolism, limb length inequality, hip instability (including dislocation), and intra-operative fractures. DESCRIPTION OF PROCEDURE: After proper identification of the patient including verification and marking the surgical site, the patient was brought to the operating room and placed in the supine position. All bony prominences were well padded. Anesthesia was induced without complication and intravenous prophylactic antibiotics were administered prior to skin incision. The operative leg was placed in the Trumpf Arch table extension and the well leg in a Yellofin leg rowland. The patient was prepped and draped in the usual sterile fashion. The C-arm was draped for intra-operative fluoroscopy to check acetabular position, femoral component position including leg length and femoral offset. Attention was then drawn to surgical exposure of the hip. An incision was made with a #10 Bard Jed blade starting 3 cm lateral and 3 cm distal to the anterior superior iliac spine measuring 8-10 cm and coursing distally toward the greater trochanter. The skin and subcutaneous tissues were divided sharply down to the fascia perla. The fascia perla was incised in line with the skin incision exposing the underlying tensor fascia perla muscle. The muscle was bluntly elevated from the fascia and the first extracapsular Cobra retractor was placed laterally at the junction of the superior femoral neck and greater trochanter. The lateral femoral circumflex vessels were identified, cauterized , and divided with the Aquamantys bipolar cautery. The deep investing fascia of the TFL was divided to allow proper mobilization of the muscle preventing damage during the retraction. The reflected head of the rectus femoris muscle was elevated off the anterior hip capsule and a medial Cobra retractor was placed just proximal to the lesser trochanter. The anterior capsulotomy was made sharply from the superolateral acetabulum to the saddle junction of the superior femoral neck and greater trochanter, then coursing inferomedial towards the lesser trochanter. The retractors were then placed in the intracapsular position for femoral neck osteotomy. Corresponding to pre-operative templating, the osteotomy was made with the oscillating saw carefully protecting the greater trochanter and soft tissues. The femoral head was removed from the acetabulum with a corkscrew and confirmed to be a femoral neck fracture. The Arch table extension was then placed in 40 degrees external rotation. Attention was then drawn to the acetabular preparation. After placement of the anterior and posterior Cobra retractors outside the labrum and intracapsular, the circumferential labrum was removed sharply. The foveal contents were then removed and hemostasis obtained with cautery. The first reamer selected was sized using the removed femoral head. Reaming began with medialization and then commenced in 2 mm increments at 45 degrees of abduction and 15 degrees of anteversion using fluoroscopic navigation. Reaming ceased 1 mm less than the definitive acetabular component and corresponded to the pre-operative templating. The final acetabular component was inserted using fluoroscopy to achieve proper orientation yielding excellent purchase and stability in the acetabulum. The final acetabular liner was then placed and its seating confirmed. Attention was then turned to the femur. The Arch table extension was placed in extension and adduction, delivering the osteotomized femoral neck into the wound. A 2-pronged femoral elevator was placed at the calcar and another at the tip of the greater trochanter. The posterolateral capsule was released with cautery allowing mobilization of the femur lateral and anterior for preparation. The external rotators were visualized and preserved. A curette and rongeur were used to open the starting point for broaching. Serial broaching started with the #0 broach and ended with the broach that exhibited excellent fit in the proximal femur. A change in pitch during mallet strikes was accompanied by the inability to advance the broach any further. The trial reduction was performed and fluoroscopic navigation was utilized to check limb length. Adjustments were made to equalize limb length accordingly. After the final trials were accepted they were removed and the wound was copiously lavaged. The femoral component was seated to the same depth as the final broach and the femoral head was impacted onto the clean trunnion. The hip was then reduced for the final time and once more fluoroscopy was used to check that limb length equality was achieved. The wound was irrigated and closed in layers, the fascia perla with 2-0 Quill, the subcutaneous tissue with 2-0 Quill, and the skin with Dermabond. Sterile dressings were applied. Final sharps and sponge counts were accurate. The patient was then transferred to a hospital bed and brought to the recovery room in stable condition. IMPLANTS: Accolade II, size 5 at 127. Acetabular component a 54 mm Tritanium. The liner is a Trident X3, 36 mm. The head is a Biolox Delta 36 mm, +5. /[id number]/MODL MTDD
[2017-05-25] MEDS: NS 1,000 ML IV SCH (12:00)
--- NOTE | 2017-05-25 12:27 | HOSPPROG ---
Hospitalist Progress Note Assessment/Plan: Patient is an 86-year-old female with a history of atrial fibrillation status post pacemaker placement. She was brought into the emergency room for further evaluation after she fell in her kitchen. Was noted that she had an acute left femur fracture. Today is my 1st encounter with the patient. Chart reviewed. * Acute left femur fracture to OR this am POD #0 INR is less than 1.3 * atrial fibrillation oral anticoagulation on hold. Rate controlled pacer in place, interrogated, stable will bridge when ok with ortho * pulmonary fibrosis thought to be secondary to amiodarone *Hyponatremia follow labs will check urine studies * uncontrolled hypertension on JESSICA/suspect much of her pain is causing elevation in bp better today *hypothyroidism: Synthroid *Chronic diastolic hear failure doesn't appear to be in failure room air *dvt prophylaxis: pumps and teds start when ok with ortho *Plan: cont support care start bridge when ok with ortho PT/OT eval will likely need SNF Subjective: No specific issues. Feeling fine. No pain. Objective: Vital Signs Temp Pulse Resp BP Pulse Ox 36.5 C 75 16 131/73 H 98 05/25/17 12:06 05/25/17 12:06 05/25/17 12:06 05/25/17 12:06 05/25/17 12:06 Laboratory Results 05/24/17 04:20 05/25/17 04:27 05/24/17 05/25/17 05/26/17 05:59 05:59 05:59 Intake Total 700 1200 860 Output Total 900 2100 200 Balance -200 -900 660 PT 16.2 SEC (12.0-15.0) H 05/25/17 04:27 INR 1.30 (0.83-1.16) H 05/25/17 04:27 - Physical Exam Constitutional: appears nourished, not in pain, chronically ill appearing Eyes: PERRL, anicteric sclera, EOMI Ears, Nose, Mouth, Throat: moist mucous membranes, hearing normal, ears appear normal Cardiovascular: irregularly irregular, No JVD, No tachycardia Respiratory: no respiratory distress, no rales or rhonchi, clear to auscultation Gastrointestinal: No tenderness, No ascites, No guarding Skin: warm, normal color, No erythema Musculoskeletal: no joint effusions, pain with ROM, muscular tenderness, generalized weakness Neurologic: AAOx3 Psychiatric: interacting appropriately, not anxious, not encephalopathic ICD10 Worksheet Patient Problems: Problems Problem Status Onset Atrial fibrillation Acute Hip fracture Acute
--- NOTE | 2017-05-25 13:25 | SOAPPROG ---
SOAP Progress Note Assessment/Plan: Assessment: 86 FEMALE SP FALL IN SURGERY THIS AM FOR LEFT ENDOPROSTHESIS Plan:WILL FOLLOW 05/25/17 13:24 Objective: Vital Signs Temp Pulse Resp BP Pulse Ox 36.5 C 82 18 116/83 H 97 05/25/17 13:05 05/25/17 13:05 05/25/17 13:05 05/25/17 13:05 05/25/17 13:05 Laboratory Results 05/24/17 04:20 05/25/17 04:27 05/24/17 05/25/17 05/26/17 05:59 05:59 05:59 Intake Total 700 1200 860 Output Total 900 2100 200 Balance -200 -900 660 PT 16.2 SEC (12.0-15.0) H 05/25/17 04:27 INR 1.30 (0.83-1.16) H 05/25/17 04:27 ICD10 Worksheet Patient Problems: Problems Problem Status Onset Hip fracture Acute Atrial fibrillation Acute
[2017-05-25] MEDS: ceFAZolin 2 GM/DEXTROSE 100 ML IV SCH ×2 (14:41→21:10)
[2017-05-25] MEDS: ACETAMINOPHEN 325 MG TAB PO PRN (14:47)
[2017-05-25] MEDS ORDERED: WARFARIN SODIUM 5 MG TAB PO SCH (16:00)
[2017-05-25] MEDS: FAMOTIDINE 20 MG TAB PO SCH (18:03)
[2017-05-25] MEDS: SENNOSIDES/DOCUSATE SODIUM TAB PO SCH (21:06)
[2017-05-26] MEDS: LEVOTHYROXINE 112 MCG TAB PO SCH (04:17)
[2017-05-26 05:00] LABS: HEMATOCRIT 31.9 % (38.0-47.0); HEMOGLOBIN 11.1 g/dL (12.6-16.3)
[2017-05-26 05:13] LABS: INR 1.37 (0.83-1.16); PROTIME(PATIENT) 16.9 SEC (12.0-15.0)
[2017-05-26 05:15] LABS: ANION GAP 7 mEq/L (8-16); CALCIUM 8.8 mg/dL (8.5-10.4); CARBON DIOXIDE 20 mEq/l (22-31); CHLORIDE 95 mEq/L (97-110); CREATININE 0.8 mg/dL (0.6-1.0); GLOMERULAR FILTRATION RATE > 60; GLUCOSE 100 mg/dL (70-100); POTASSIUM 4.2 mEq/L (3.5-5.2); SODIUM 122 mEq/L (134-144)
[2017-05-26] MEDS: BECLOMETHASONE QVAR 40 MDI IH SCH ×2 (08:43→20:07)
[2017-05-26] MEDS: SENNOSIDES/DOCUSATE SODIUM TAB PO SCH ×2 (09:49→21:56)
[2017-05-26] MEDS: LISINOPRIL 5 MG TAB PO SCH ×2 (09:49→21:57)
[2017-05-26] MEDS: AMIODARONE HCL 200 MG TAB PO SCH (09:49)
[2017-05-26] MEDS: ACETAMINOPHEN 325 MG TAB PO PRN ×2 (09:56→18:25)
--- NOTE | 2017-05-26 10:53 | SOAPPROG ---
SOAP Progress Note Assessment/Plan: Assessment/Plan: 86 Y F c hx afib, PPM s/p fall, L displaced femoral neck fracture, now s/p L total hip arthroplasty. No new complaints. Care per medicine and ortho. Will d/w Dr. Flores. S: some nausea. pain only at Left hip. O gen: alert, nad, looking at lunch menu heent: pupils equal, round, ncat pulm: ctab, no wrr cor: irregular abd: soft, nt ext: wwp 05/26/17 10:53 Objective: Vital Signs Temp Pulse Resp BP Pulse Ox 36.5 C 75 16 158/86 H 90 L 05/26/17 08:00 05/26/17 08:00 05/26/17 08:00 05/26/17 09:49 05/26/17 08:00 Laboratory Results 05/26/17 04:15 05/26/17 04:15 05/25/17 05/26/17 05/27/17 05:59 05:59 05:59 Intake Total 1200 3655 Output Total 2100 950 Balance -900 2705 PT 16.9 SEC (12.0-15.0) H 05/26/17 04:15 INR 1.37 (0.83-1.16) H 05/26/17 04:15 ICD10 Worksheet Patient Problems: Problems Problem Status Onset Hip fracture Acute Atrial fibrillation Acute
--- NOTE | 2017-05-26 11:13 | SOAPPROG ---
SOAP Progress Note Assessment/Plan: Assessment: Lizett is doing well POD 1 s/p L BRIJESH due to femoral neck fracture 1) pain management: pain is well controlled 2) VTe ppx: skilled nursing coumadin, recommend resuming coumadin. INR 1.37 today. do not recommend lovenox bridge 3) WBAT with FWW 4) hyponatremia: appreciate hospitalist recommendation 5) d/c planning: when medically stable, would benefit from SNF placement most likely. f/u with Dr. roca in 2-3 weeks postop Plan: 05/26/17 11:10 05/26/17 11:12 Subjective: Lizett is doing well today, denies SOB, chest pain and N/V. sleepy Objective: Vital Signs Temp Pulse Resp BP Pulse Ox 36.5 C 75 16 158/86 H 90 L 05/26/17 08:00 05/26/17 08:00 05/26/17 08:00 05/26/17 09:49 05/26/17 08:00 Laboratory Results 05/26/17 04:15 05/26/17 04:15 05/25/17 05/26/17 05/27/17 05:59 05:59 05:59 Intake Total 1200 3655 Output Total 2100 950 Balance -900 2705 PT 16.9 SEC (12.0-15.0) H 05/26/17 04:15 INR 1.37 (0.83-1.16) H 05/26/17 04:15 LLE: incision dressing is clean and dry, NVI, +pf/df ICD10 Worksheet Patient Problems: Problems Problem Status Onset Hip fracture Acute Atrial fibrillation Acute
--- NOTE | 2017-05-26 12:56 | HOSPPROG ---
Hospitalist Progress Note Assessment/Plan: Patient is an 86-year-old female with a history of atrial fibrillation status post pacemaker placement. She was brought into the emergency room for further evaluation after she fell in her kitchen. Was noted that she had an acute left femur fracture. * Acute left femur fracture POD #1 INR is less than 1.3 cont PT/OT * atrial fibrillation oral anticoagulation, restart coumadin. 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 Tired. No pain. Some nausea. Objective: Vital Signs Temp Pulse Resp BP Pulse Ox 36.6 C 61 13 127/62 H 100 05/26/17 12:01 05/26/17 12:01 05/26/17 12:01 05/26/17 12:01 05/26/17 12:01 Laboratory Results 05/26/17 04:15 05/26/17 04:15 05/25/17 05/26/17 05/27/17 05:59 05:59 05:59 Intake Total 1200 3655 Output Total 2100 950 Balance -900 2705 PT 16.9 SEC (12.0-15.0) H 05/26/17 04:15 INR 1.37 (0.83-1.16) H 05/26/17 04:15 - Physical Exam Constitutional: appears nourished, not in pain, chronically ill appearing Eyes: PERRL, anicteric sclera Ears, Nose, Mouth, Throat: moist mucous membranes, hearing normal, ears appear normal Cardiovascular: edema, No JVD Respiratory: no respiratory distress, reduced air movement Gastrointestinal: normoactive bowel sounds, No ascites Skin: warm, No abrasion Musculoskeletal: pain with ROM, generalized weakness Neurologic: AAOx3 Psychiatric: interacting appropriately, not anxious, not encephalopathic ICD10 Worksheet Patient Problems: Problems Problem Status Onset Atrial fibrillation Acute Hip fracture Acute
[2017-05-26] MEDS: WARFARIN SODIUM 2.5 MG TAB PO SCH (15:13)
[2017-05-26] MEDS: FAMOTIDINE 20 MG TAB PO SCH (18:24)
[2017-05-26] MEDS: CYCLOBENZAPRINE 10 MG TAB PO PRN (21:57)
[2017-05-26] MEDS: hydrALAZINE 20 MG/ML VIAL IVP PRN (22:07)
[2017-05-27] MEDS: HYDROCODONE/APAP 5/325 TAB PO PRN (00:40)
[2017-05-27] MEDS: HYDROmorphONE/DILAUDID 1 MG/ML SYR IVP PRN ×2 (02:06→06:28)
[2017-05-27] MEDS: LEVOTHYROXINE 112 MCG TAB PO SCH (04:26)
[2017-05-27 05:36] LABS: HEMATOCRIT 32.2 % (38.0-47.0); HEMOGLOBIN 11.4 g/dL (12.6-16.3)
[2017-05-27 05:46] LABS: INR 1.21 (0.83-1.16); PROTIME(PATIENT) 15.3 SEC (12.0-15.0)
[2017-05-27 06:01] LABS: ANION GAP 7 mEq/L (8-16); CALCIUM 8.8 mg/dL (8.5-10.4); CARBON DIOXIDE 21 mEq/l (22-31); CHLORIDE 94 mEq/L (97-110); CREATININE 0.8 mg/dL (0.6-1.0); GLOMERULAR FILTRATION RATE > 60; GLUCOSE 86 mg/dL (70-100); SODIUM 122 mEq/L (134-144)
[2017-05-27] MEDS: CYCLOBENZAPRINE 10 MG TAB PO PRN (06:28)
[2017-05-27] MEDS: BECLOMETHASONE QVAR 40 MDI IH SCH ×2 (08:58→21:24)
--- NOTE | 2017-05-27 09:45 | SOAPPROG ---
SOAP Progress Note Assessment/Plan: Assessment: pt with dislocation s/p BRIJESH rec closed reduction then abd pillow discussed with family and consent obtained from them as pt was slightly confused Plan: 05/27/17 09:44 05/27/17 09:45 Objective: Vital Signs Temp Pulse Resp BP Pulse Ox 36.1 C 60 16 116/51 L 99 05/27/17 09:33 05/27/17 09:33 05/27/17 09:33 05/27/17 09:33 05/27/17 09:33 Laboratory Results 05/27/17 05:24 05/27/17 05:24 05/26/17 05/27/17 05/28/17 05:59 05:59 05:59 Intake Total 3655 1250 Output Total 950 800 Balance 2705 450 PT 15.3 SEC (12.0-15.0) H 05/27/17 05:24 INR 1.21 (0.83-1.16) H 05/27/17 05:24 ICD10 Worksheet Patient Problems: Problems Problem Status Onset Hip fracture Acute Atrial fibrillation Acute
--- NOTE | 2017-05-27 09:46 | POSTOPPROG ---
Post Op Note Date of Operation: 05/27/17 Surgeon: Ciera Montoya Anesthesiologist: Simi Anesthesia: IV Sedation Pre-op Diagnosis: L BRIJESH dislocation Post-op Diagnosis: same Indication: pain Procedure: closed reduction left BRIJESH Inf/Abcess present in the surg proc area at time of surgery?: No
--- NOTE | 2017-05-27 10:16 | GOP ---
[f rep st] OPERATIVE REPORT DATE OF OPERATION: 05/27/2017 SURGEON: Asif Montoya MD ANESTHESIA: IV sedation. PREOPERATIVE DIAGNOSIS: Left hip total hip dislocation. POSTOPERATIVE DIAGNOSIS: Left hip total hip dislocation. PROCEDURE PERFORMED: Closed reduction, left total hip arthroplasty. FINDINGS: ESTIMATED BLOOD LOSS: Zero. INDICATIONS: Patient is an 86-year-old female who started having pain and difficulty ambulating las t night. On mechanism, patient states that she fell. There are no reports of this from the staff. Questionable historian from the patient. Risks and benefits were discussed with the patient and he r family and informed consent was obtained from her family for a closed reduction. DESCRIPTION OF PROCEDURE: The patient identified in the preoperative holding area. Her left lower extremity was marked. She was then brought back to the operating room. After induction of anesthes ia, time-out was obtained confirming patient, laterality, procedure, allergies and antibiotic status . I then performed a closed reduction of the left total hip without little difficulty. This was co nfirmed on fluoroscopic image. She was then brought to the PACU in good condition with a well perfu sed limb. The plan will be to place the patient in a hip abduction brace and pillow. She will be weightbearin g as tolerated. She will have posterior hip precautions. /[id number]/MODL
--- NOTE | 2017-05-27 10:58 | TRAUMAPN ---
Assessment/Plan: isolated hip fx s/p fall - no other trauma issues - trauma to sign off - call with questions. Objective: Vital Signs Temp Pulse Resp BP Pulse Ox 36.6 C 66 14 135/74 H 97 05/27/17 10:39 05/27/17 10:39 05/27/17 10:39 05/27/17 10:39 05/27/17 10:39 Laboratory Results 05/27/17 05:24 05/27/17 05:24 05/26/17 05/27/17 05/28/17 05:59 05:59 05:59 Intake Total 3655 1250 200 Output Total 950 800 0 Balance 2705 450 200 PT 15.3 SEC (12.0-15.0) H 05/27/17 05:24 INR 1.21 (0.83-1.16) H 05/27/17 05:24
[2017-05-27] MEDS ORDERED: fentaNYL 100 MCG/2 ML INJ ONE (11:06)
[2017-05-27] MEDS ORDERED: PROPOFOL 200 MG/20 ML VIAL ONE (11:07)
[2017-05-27] MEDS: AMIODARONE HCL 200 MG TAB PO SCH (11:11)
[2017-05-27] MEDS: LISINOPRIL 5 MG TAB PO SCH ×2 (11:11→21:00)
[2017-05-27 11:24] LABS: COLOR PALE YELLOW; LEUKOCYTE ESTERASE,URINE NEGATIVE (NEGATIVE); NITRITE,URINE NEGATIVE (NEGATIVE)
[2017-05-27] MEDS: SENNOSIDES/DOCUSATE SODIUM TAB PO SCH ×2 (13:02→20:59)
--- NOTE | 2017-05-27 13:21 | HOSPPROG ---
Hospitalist Progress Note Assessment/Plan: Patient is an 86-year-old female with a history of atrial fibrillation status post pacemaker placement. She was brought into the emergency room for further evaluation after she fell in her kitchen. Was noted that she had an acute left femur fracture. Reviewed with Dr Chacon. * Acute left femur fracture POD #2 cont PT/OT #Dislocation back to OR this am fixed new precautions * atrial fibrillation oral anticoagulation, restarted coumadin. 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 Some nausea. No other issues. Objective: Vital Signs Temp Pulse Resp BP Pulse Ox 36.4 C 72 12 131/78 H 95 05/27/17 13:02 05/27/17 13:02 05/27/17 13:02 05/27/17 13:02 05/27/17 13:02 Laboratory Results 05/27/17 05:24 05/27/17 05:24 05/26/17 05/27/17 05/28/17 05:59 05:59 05:59 Intake Total 3655 1250 200 Output Total 950 800 0 Balance 2705 450 200 PT 15.3 SEC (12.0-15.0) H 05/27/17 05:24 INR 1.21 (0.83-1.16) H 05/27/17 05:24 - Physical Exam Constitutional: no apparent distress, appears nourished, chronically ill appearing Eyes: PERRL, anicteric sclera, EOMI Ears, Nose, Mouth, Throat: moist mucous membranes, hearing normal, ears appear normal Cardiovascular: edema, No tachycardia, No bradycardia Respiratory: no respiratory distress, no rales or rhonchi, reduced air movement Gastrointestinal: normoactive bowel sounds, No tenderness, No ascites Skin: warm, abrasion, No mottled Musculoskeletal: no joint effusions, muscular tenderness, generalized weakness Neurologic: AAOx3 Psychiatric: not anxious, not encephalopathic, poor insight ICD10 Worksheet Patient Problems: Problems Problem Status Onset Atrial fibrillation Acute Hip fracture Acute
[2017-05-27] MEDS: ACETAMINOPHEN 500 MG TAB PO PRN ×2 (14:21→21:00)
[2017-05-27] MEDS: WARFARIN SODIUM 5 MG TAB PO SCH (14:21)
[2017-05-27] MEDS: FAMOTIDINE 20 MG TAB PO SCH (18:11)
[2017-05-28] MEDS: hydrALAZINE 20 MG/ML VIAL IVP PRN (01:16)
[2017-05-28] MEDS: ACETAMINOPHEN 500 MG TAB PO PRN ×2 (02:04→09:24)
[2017-05-28] MEDS: CYCLOBENZAPRINE 10 MG TAB PO PRN ×2 (02:08→11:17)
[2017-05-28 03:41] LABS: ANION GAP 7 mEq/L (8-16); CARBON DIOXIDE 22 mEq/l (22-31); CHLORIDE 97 mEq/L (97-110); CREATININE 0.8 mg/dL (0.6-1.0); GLOMERULAR FILTRATION RATE > 60; GLUCOSE 77 mg/dL (70-100); SODIUM 126 mEq/L (134-144)
[2017-05-28 04:53] LABS: INR 1.3 (0.83-1.16); PROTIME(PATIENT) 16.2 SEC (12.0-15.0)
[2017-05-28] MEDS: LEVOTHYROXINE 112 MCG TAB PO SCH (05:37)
--- NOTE | 2017-05-28 08:24 | HOSPPROG ---
Hospitalist Progress Note Assessment/Plan: Patient is an 86-year-old female with a history of atrial fibrillation status post pacemaker placement. She was brought into the emergency room for further evaluation after she fell in her kitchen. Was noted that she had an acute left femur fracture. 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 Objective: Vital Signs Temp Pulse Resp BP Pulse Ox 36.4 C 68 16 152/72 H 90 L 05/28/17 07:19 05/28/17 07:19 05/28/17 07:19 05/28/17 07:19 05/28/17 07:19 Laboratory Results 05/27/17 05:24 05/28/17 02:00 05/27/17 05/28/17 05/29/17 05:59 05:59 05:59 Intake Total 1250 800 Output Total 800 300 Balance 450 500 PT 16.2 SEC (12.0-15.0) H 05/28/17 04:19 INR 1.30 (0.83-1.16) H 05/28/17 04:19 - Physical Exam Constitutional: chronically ill appearing, uncomfortable Eyes: PERRL Ears, Nose, Mouth, Throat: hearing normal Cardiovascular: regular rate and rhythym Respiratory: no respiratory distress Gastrointestinal: normoactive bowel sounds Skin: warm Musculoskeletal: muscular tenderness, generalized weakness Neurologic: AAOx3 Psychiatric: interacting appropriately, anxious ICD10 Worksheet Patient Problems: Problems Problem Status Onset Hip fracture Acute Atrial fibrillation Acute
[2017-05-28] MEDS: AMIODARONE HCL 200 MG TAB PO SCH (09:22)
[2017-05-28] MEDS: SENNOSIDES/DOCUSATE SODIUM TAB PO SCH ×2 (09:23→22:22)
[2017-05-28] MEDS: POLYETHYLENE GLYCOL 3350 17 GM PKT PO PRN (09:24)
[2017-05-28] MEDS: LISINOPRIL 5 MG TAB PO SCH ×2 (09:24→22:21)
[2017-05-28] MEDS: BECLOMETHASONE QVAR 40 MDI IH SCH ×2 (10:02→23:20)
[2017-05-28] MEDS: WARFARIN SODIUM 2.5 MG TAB PO SCH (13:12)
[2017-05-28] MEDS: FAMOTIDINE 20 MG TAB PO SCH (17:03)
[2017-05-28] MEDS: ACETAMINOPHEN 500 MG TAB PO SCH ×2 (17:04→22:20)
[2017-05-28] MEDS: oxyCODONE IR 5 MG TAB PO PRN (18:36)
[2017-05-28] MEDS: METHOCARBAMOL 500 MG TAB PO PRN (22:21)
[2017-05-29] MEDS: oxyCODONE IR 5 MG TAB PO PRN ×3 (02:15→23:04)
[2017-05-29] MEDS: hydrALAZINE 20 MG/ML VIAL IVP PRN (02:16)
[2017-05-29] MEDS: METHOCARBAMOL 500 MG TAB PO PRN ×4 (02:49→22:32)
[2017-05-29 04:59] LABS: ABSOLUTE IMMATURE GRANULOCYTES 0.07 10^3/uL (0.00-0.10); ADD DIFF? NO; ADD MORPH? NO; ADD SCAN? NO; ATYPICAL LYMPHOCYTE FLAG 0 (0-99); FRAGMENT RBC FLAG 0 (0-99); HEMATOCRIT 32.1 % (38.0-47.0); LEFT SHIFT FLG 0 (0-99); LIPEMIA HEMOLYSIS FLAG 90 (0-99); MEAN CELL HEMOGLOBIN 32.5 pg (27.9-34.1); MEAN CELL HEMOGLOBIN CONCENTR. 34.3 g/dL (32.4-36.7); MEAN PLATELET VOLUME 8.8 fL (8.7-11.7); PLATELET CLUMPS FLAG 0 (0-99); PLATELET COUNT 229 10^3/uL (150-400); RED BLOOD CELL COUNT 3.38 10^6/uL (4.18-5.33); RED CELL DISTRIBUTION WIDTH 13.2 % (11.5-15.2)
[2017-05-29 05:08] LABS: INR 1.57 (0.83-1.16); PROTIME(PATIENT) 18.8 SEC (12.0-15.0)
[2017-05-29 05:16] LABS: ANION GAP 7 mEq/L (8-16); CALCIUM 8.5 mg/dL (8.5-10.4); CARBON DIOXIDE 23 mEq/l (22-31); CHLORIDE 96 mEq/L (97-110); CREATININE 0.7 mg/dL (0.6-1.0); GLOMERULAR FILTRATION RATE > 60; GLUCOSE 82 mg/dL (70-100); POTASSIUM 3.5 mEq/L (3.5-5.2); SODIUM 126 mEq/L (134-144)
[2017-05-29] MEDS: LEVOTHYROXINE 112 MCG TAB PO SCH (05:59)
[2017-05-29] MEDS: BECLOMETHASONE QVAR 40 MDI IH SCH ×2 (08:35→21:07)
[2017-05-29] MEDS: AMIODARONE HCL 200 MG TAB PO SCH (08:58)
[2017-05-29] MEDS: LISINOPRIL 5 MG TAB PO SCH ×2 (08:59→20:51)
[2017-05-29] MEDS: SENNOSIDES/DOCUSATE SODIUM TAB PO SCH ×2 (08:59→20:51)
[2017-05-29] MEDS: ACETAMINOPHEN 500 MG TAB PO SCH ×3 (08:59→21:29)
--- NOTE | 2017-05-29 10:06 | HOSPPROG ---
Hospitalist Progress Note Assessment/Plan: Patient is an 86-year-old female with a history of atrial fibrillation status post pacemaker placement. She was brought into the emergency room for further evaluation after she fell in her kitchen. Was noted that she had an acute left femur fracture. 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 Subjective: Lizett is c/o severe spasms in her right hip. Objective: Vital Signs Temp Pulse Resp BP Pulse Ox 36.4 C 70 12 140/75 H 98 05/29/17 07:39 05/29/17 08:39 05/29/17 08:39 05/29/17 08:59 05/29/17 08:39 Laboratory Results 05/29/17 04:35 05/29/17 04:35 05/28/17 05/29/17 05/30/17 05:59 05:59 05:59 Intake Total 800 650 Output Total 300 Balance 500 650 PT 18.8 SEC (12.0-15.0) H 05/29/17 04:35 INR 1.57 (0.83-1.16) H 05/29/17 04:35 - Physical Exam Constitutional: chronically ill appearing, uncomfortable, No no apparent distress, No not in pain Eyes: PERRL Ears, Nose, Mouth, Throat: hearing normal Cardiovascular: regular rate and rhythym Respiratory: no respiratory distress Gastrointestinal: normoactive bowel sounds Skin: warm, other (left hip with redness and swelling) Musculoskeletal: muscular tenderness Psychiatric: thought process linear, anxious ICD10 Worksheet Patient Problems: Problems Problem Status Onset Hip fracture Acute Atrial fibrillation Acute
[2017-05-29] MEDS ORDERED: NS 300 ML IV ONE (12:27)
[2017-05-29] MEDS: WARFARIN SODIUM 5 MG TAB PO SCH (13:47)
[2017-05-29] MEDS: DIAZEPAM 2 MG TAB PO PRN ×2 (13:49→21:29)
[2017-05-29] MEDS: FAMOTIDINE 20 MG TAB PO SCH (17:49)
[2017-05-29] MEDS ORDERED: CYCLOBENZAPRINE 10 MG TAB PO PRN (23:47)
[2017-05-30 04:52] LABS: INR 2.01 (0.83-1.16); PROTIME(PATIENT) 22.9 SEC (12.0-15.0)
[2017-05-30 04:56] LABS: ANION GAP 6 mEq/L (8-16); CALCIUM 8.8 mg/dL (8.5-10.4); CARBON DIOXIDE 24 mEq/l (22-31); CHLORIDE 96 mEq/L (97-110); CREATININE 0.8 mg/dL (0.6-1.0); GLOMERULAR FILTRATION RATE > 60; GLUCOSE 82 mg/dL (70-100); SODIUM 126 mEq/L (134-144)
[2017-05-30] MEDS: LEVOTHYROXINE 112 MCG TAB PO SCH (05:31)
[2017-05-30] MEDS: hydrALAZINE 20 MG/ML VIAL IVP PRN (05:31)
[2017-05-30] MEDS: DIAZEPAM 2 MG TAB PO PRN ×4 (06:01→22:45)
[2017-05-30] MEDS: SENNOSIDES/DOCUSATE SODIUM TAB PO SCH ×2 (08:06→20:58)
[2017-05-30] MEDS: LISINOPRIL 5 MG TAB PO SCH ×2 (08:06→20:56)
[2017-05-30] MEDS: ACETAMINOPHEN 500 MG TAB PO SCH ×3 (08:06→20:53)
[2017-05-30] MEDS: AMIODARONE HCL 200 MG TAB PO SCH (08:06)
[2017-05-30] MEDS: BECLOMETHASONE QVAR 40 MDI IH SCH ×2 (08:41→22:16)
[2017-05-30] MEDS: LIDOCAINE 5% 1 EA PATCH TD SCH ×3 (09:12→22:48)
--- NOTE | 2017-05-30 09:27 | HOSPPROG ---
Hospitalist Progress Note Assessment/Plan: Patient is an 86-year-old female with a history of atrial fibrillation status post pacemaker placement. She was brought into the emergency room for further evaluation after she fell in her kitchen. Was noted that she had an acute left femur fracture. 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 Objective: Vital Signs Temp Pulse Resp BP Pulse Ox 36.3 C 63 15 131/56 H 96 05/30/17 07:33 05/30/17 08:41 05/30/17 08:41 05/30/17 07:33 05/30/17 08:41 Laboratory Results 05/29/17 04:35 05/30/17 04:21 05/29/17 05/30/17 05/31/17 05:59 05:59 05:59 Intake Total 650 1300 Output Total 1150 Balance 650 150 PT 22.9 SEC (12.0-15.0) H 05/30/17 04:21 INR 2.01 (0.83-1.16) H 05/30/17 04:21 - Physical Exam Constitutional: uncomfortable, No not in pain Eyes: PERRL Ears, Nose, Mouth, Throat: hearing normal Respiratory: no respiratory distress Gastrointestinal: normoactive bowel sounds Skin: warm Musculoskeletal: muscular tenderness Neurologic: AAOx3 Psychiatric: anxious ICD10 Worksheet Patient Problems: Problems Problem Status Onset Hip fracture Acute Atrial fibrillation Acute
[2017-05-30] MEDS: WARFARIN SODIUM 2.5 MG TAB PO SCH (13:08)
[2017-05-30] MEDS: PATCH REMOVAL 1 EA PATCH TD SCH (13:26)
[2017-05-30] MEDS: METHOCARBAMOL 500 MG TAB PO SCH ×2 (14:44→20:57)
[2017-05-30] MEDS: FAMOTIDINE 20 MG TAB PO SCH (20:54)
[2017-05-30] MEDS ORDERED: GABAPENTIN 100 MG CAP PO SCH (21:00)
[2017-05-31] MEDS: oxyCODONE IR 5 MG TAB PO PRN ×2 (02:54→10:42)
[2017-05-31] MEDS: LEVOTHYROXINE 112 MCG TAB PO SCH (05:26)
[2017-05-31 05:50] LABS: INR 2.88 (0.83-1.16); PROTIME(PATIENT) 30.5 SEC (12.0-15.0)
[2017-05-31 05:56] LABS: ANION GAP 6 mEq/L (8-16); CALCIUM 8.3 mg/dL (8.5-10.4); CARBON DIOXIDE 22 mEq/l (22-31); CHLORIDE 95 mEq/L (97-110); CREATININE 0.7 mg/dL (0.6-1.0); GLOMERULAR FILTRATION RATE > 60; GLUCOSE 85 mg/dL (70-100); POTASSIUM 4.1 mEq/L (3.5-5.2); SODIUM 123 mEq/L (134-144)
--- NOTE | 2017-05-31 07:25 | SOAPPROG ---
SOAP Progress Note Assessment/Plan: Assessment: pt with dislocation s/p BRIJESH now reduced rec abd pillow when in bed pt c/o R hip pain and spasms has significant lumbar spine dz ANT and POST hip precautions Plan: 05/27/17 09:44 05/27/17 09:45 05/31/17 07:23 Objective: Vital Signs Temp Pulse Resp BP Pulse Ox 36.9 C 73 17 141/74 H 98 05/31/17 00:00 05/31/17 00:00 05/31/17 00:00 05/31/17 00:00 05/31/17 00:00 Laboratory Results 05/29/17 04:35 05/31/17 04:15 05/30/17 05/31/17 06/01/17 05:59 05:59 05:59 Intake Total 1300 800 Output Total 1150 Balance 150 800 PT 30.5 SEC (12.0-15.0) H 05/31/17 04:15 INR 2.88 (0.83-1.16) H 05/31/17 04:15 ICD10 Worksheet Patient Problems: Problems Problem Status Onset Hip fracture Acute Atrial fibrillation Acute
[2017-05-31] MEDS: POLYETHYLENE GLYCOL 3350 17 GM PKT PO PRN (08:18)
[2017-05-31] MEDS: METHOCARBAMOL 500 MG TAB PO SCH ×3 (08:18→21:00)
[2017-05-31] MEDS: ACETAMINOPHEN 500 MG TAB PO SCH ×3 (08:19→20:57)
[2017-05-31] MEDS: AMIODARONE HCL 200 MG TAB PO SCH (08:19)
[2017-05-31] MEDS: SENNOSIDES/DOCUSATE SODIUM TAB PO SCH ×2 (08:19→20:56)
[2017-05-31] MEDS: LIDOCAINE 5% 1 EA PATCH TD SCH (08:20)
[2017-05-31] MEDS: LISINOPRIL 5 MG TAB PO SCH ×2 (08:32→20:59)
[2017-05-31] MEDS: PATCH REMOVAL 1 EA PATCH TD SCH (08:32)
[2017-05-31] MEDS: BECLOMETHASONE QVAR 40 MDI IH SCH ×2 (08:41→21:22)
--- NOTE | 2017-05-31 10:09 | HOSPPROG ---
Hospitalist Progress Note Assessment/Plan: Patient is an 86-year-old female with a history of atrial fibrillation status post pacemaker placement. She was brought into the emergency room for further evaluation after she fell in her kitchen. Was noted that she had an acute left femur fracture. * Acute left femur fracture POD #6 having severe hip spasms/ Robaxin not very helpful/Flexeril causes her to be too sedate/ Valium helped/ gabapentin helped scheduled Tylenol pain is mainly in her right piriformis area (opposite side) most of her pain is from the abductor pillow causing r sided hip pain reviewed r sided hip xray/nothig acute *hip dislocation on 05/27 s/p reduced new precautions (anterior and posterior) * atrial fibrillation Coumadin re-initiated pacer in place INR is 2.88 *urinary retention nursing staff had to straight cath last night if cont to have retention/will have lundberg placed in till more mobile * 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 Change Gabapentin to bid. Subjective: Lizett is drowsy, not c/o pain. Objective: Vital Signs Temp Pulse Resp BP Pulse Ox 36.4 C 60 16 97/51 L 97 05/31/17 09:20 05/31/17 09:20 05/31/17 09:20 05/31/17 09:20 05/31/17 09:20 Laboratory Results 05/29/17 04:35 05/31/17 04:15 05/30/17 05/31/17 06/01/17 05:59 05:59 05:59 Intake Total 1300 800 Output Total 1150 Balance 150 800 PT 30.5 SEC (12.0-15.0) H 05/31/17 04:15 INR 2.88 (0.83-1.16) H 05/31/17 04:15 - Physical Exam Constitutional: uncomfortable Eyes: PERRL Ears, Nose, Mouth, Throat: hearing normal Cardiovascular: regular rate and rhythym Respiratory: no respiratory distress Skin: warm, other (left hip w minimal swelling/slightly red) Musculoskeletal: muscular tenderness, generalized weakness Neurologic: other (alert and oriented) Psychiatric: interacting appropriately, other (sleepy) ICD10 Worksheet Patient Problems: Problems Problem Status Onset Hip fracture Acute Atrial fibrillation Acute
[2017-05-31] MEDS ORDERED: NS 1,000 ML IV SCH (10:15)
[2017-05-31] MEDS ORDERED: NS 500 ML IV SCH (10:53)
[2017-05-31 10:56] LABS: HEMATOCRIT 31.7 % (38.0-47.0); HEMOGLOBIN 10.6 g/dL (12.6-16.3)
[2017-05-31] MEDS ORDERED: DIAZEPAM 2 MG TAB PO PRN (14:42)
[2017-05-31] MEDS: FAMOTIDINE 20 MG TAB PO SCH (16:45)
[2017-05-31] MEDS: NS 1,000 ML IV SCH ×3 (17:00→20:57)
[2017-05-31] MEDS: GABAPENTIN 100 MG CAP PO SCH (20:58)
[2017-06-01] MEDS: oxyCODONE IR 5 MG TAB PO PRN (00:24)
[2017-06-01 04:49] LABS: HEMATOCRIT 30.7 % (38.0-47.0); HEMOGLOBIN 10.4 g/dL (12.6-16.3)
[2017-06-01 05:06] LABS: ANION GAP 6 mEq/L (8-16); CALCIUM 8.4 mg/dL (8.5-10.4); CARBON DIOXIDE 22 mEq/l (22-31); CHLORIDE 100 mEq/L (97-110); CREATININE 0.7 mg/dL (0.6-1.0); GLOMERULAR FILTRATION RATE > 60; GLUCOSE 87 mg/dL (70-100); POTASSIUM 4.3 mEq/L (3.5-5.2); SODIUM 128 mEq/L (134-144)
[2017-06-01] MEDS: LEVOTHYROXINE 112 MCG TAB PO SCH (05:08)
[2017-06-01] MEDS: NS 1,000 ML IV SCH (05:09)
[2017-06-01 05:49] LABS: INR 2.99 (0.83-1.16); PROTIME(PATIENT) 31.5 SEC (12.0-15.0)
[2017-06-01] MEDS: BECLOMETHASONE QVAR 40 MDI IH SCH ×2 (07:54→20:35)
--- NOTE | 2017-06-01 09:10 | ECHO ---
[id number] + + [address] : : [place] [address] : : [phone] + + Adult Echocardiographic Report + ------+ :Name: NUNO LOVE TStudy Date: 05/31/2017 12:27 PM : : Hospital Admission Number: [id number] Locatio n: 141: :: 1930 Gender: Female Height: 65 in : :Age: 86 yrs Race: WH Weight: 120 lb : :Reason For Study: Post op hip/A fib : : BSA: 1.6 meters 2 : :History: Pacer : + ------+ MMode/2D Measurements \T\ Calculations IVSd: 1.0 cm LVIDd: 3.7 cm FS: 31.8 % Ao root diam: 3.7 cm LVPWd: 1.00 cm LVIDs: 2.6 cm EDV(Teich): 60.0 ml LA dimension: 3.5 cm ESV(Teich): 23.6 ml EF(Teich): 60.7 % LVOT diam: 1.9 cm LVOT area: 2.9 cm2 Normal Measurement Values: + + :LVIDd (3.5-5.7cm) IVSd (0.6-1.1cm) LVPWd (0.6-1.1cm) Aortic Root (2.0-3.7cm)Left Atrium (1.5-4.0cm): :LV Vol(d) (76-115ml) LV Vol(s) (29-48ml) Ejec Fraction (50-65%)PV Walker (0.6- 1.2m/s) TV Walker (0.4-1.0m/s) : :MV E Walker (0.8-1.0m/s)MV A Walker (0.3-1.0m/s)LVOT Walker (0.7-1.2m/s) Asc Ao Walker ( 0.9-1.8m/s) : + + Doppler Measurements \T\ Calculations MV E max walker: Ao mean P.9 mmHgLV V1 max: SV(LVOT): 80.0 cm/sec Ao V2 mean: 91.8 cm/sec 64.6 ml MV A max walker: 147.6 cm/sec LV V1 max P.3 cm/sec Ao V2 VTI: 45.7 cm 3.4 mmHg MV E/A: 0.84 LV V1 mean PG: BRYCE(I,D): 1.4 cm2 2.0 mmHg LV V1 mean: 63.8 cm/sec LV V1 VTI: 22.6 cm TR max walker: 286.4 cm/sec TR max P.8 mmHg RAP systole: 5.0 mmHg RVSP(TR): 37.8 mmHg Left Ventricle The left ventricle is normal in size. There is mild concentric left ventricular hypertrophy. Left ventricular systolic function is normal. Ejection Fraction = 65-70%. No regional wall motion abnormalities noted. Right Ventricle The right ventricle is normal in size and function. There is a pacemaker lead in the right ventricle. Atria The left atrium is mildly dilated. Right atrial size is normal. Mitral Valve Calcified mitral apparatus. There is moderate to severe mitral annular calcification. There is no evidence of mitral valve prolapse. There is no mitral valve stenosis. There is mild mitral regurgitation. Tricuspid Valve Normal tricuspid valve. There is mild to moderate tricuspid regurgitation. Right ventricular systolic pressure is 38mmHg. Aortic Valve The aortic valve is trileaflet. There is moderate to severe aortic valve calcification. No . Trace aortic regurgitation. Pulmonic Valve The pulmonic valve is normal in structure and function. Trace pulmonic valvular regurgitation. Great Vessels The aortic root is normal size. Pericardium/Pleural There is no pericardial effusion. Conclusion A complete two-dimensional transthoracic echocardiogram was performed (2D, M-mode, Doppler and color flow Doppler). Left ventricular systolic function is normal. There is mild concentric left ventricular hypertrophy. Ejection Fraction = 65-70%. There is a pacemaker lead in the right ventricle. The left atrium is mildly dilated. Calcified mitral apparatus. There is moderate to severe mitral annular calcification. There is mild mitral regurgitation. Right ventricular systolic pressure is 38mmHg. There is moderate to severe aortic valve calcification. No Trace aortic regurgitation. Trace pulmonic valvular regurgitation. There is mild to moderate tricuspid regurgitation. Compared with 07/29/2012, valvular disease has improved slightly Final Reading Physician: Dr Ami Luna electronically signed on 06/01/2017 09:09 AM Ordering Physician: Masha Perez Performed By: Ally Yu, ANALICS
[2017-06-01] MEDS: POLYETHYLENE GLYCOL 3350 17 GM PKT PO PRN (09:22)
[2017-06-01] MEDS: SENNOSIDES/DOCUSATE SODIUM TAB PO SCH ×2 (09:23→20:45)
[2017-06-01] MEDS: AMIODARONE HCL 200 MG TAB PO SCH (09:23)
[2017-06-01] MEDS: METHOCARBAMOL 500 MG TAB PO SCH ×3 (09:24→20:43)
[2017-06-01] MEDS: ACETAMINOPHEN 500 MG TAB PO SCH ×3 (09:24→20:42)
[2017-06-01] MEDS: LISINOPRIL 5 MG TAB PO SCH ×2 (09:25→20:43)
[2017-06-01] MEDS: GABAPENTIN 100 MG CAP PO SCH ×2 (09:25→20:44)
--- NOTE | 2017-06-01 09:41 | HOSPPROG ---
Hospitalist Progress Note Assessment/Plan: Patient is an 86-year-old female with a history of atrial fibrillation status post pacemaker placement. She was brought into the emergency room for further evaluation after she fell in her kitchen. Was noted that she had an acute left femur fracture. * Acute left femur fracture s/p repair Spasms much improved. Daughter has been working on the patient doing gentle stretches. 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 Patient markedly better this morning. Subjective: Lizett has no complaints. Objective: Vital Signs Temp Pulse Resp BP Pulse Ox 36.4 C 60 12 162/73 H 98 05/31/17 23:17 06/01/17 07:58 06/01/17 07:58 05/31/17 23:17 06/01/17 07:58 Laboratory Results 06/01/17 04:30 06/01/17 04:30 05/31/17 06/01/17 06/02/17 05:59 05:59 05:59 Intake Total 800 2310 250 Output Total 1600 Balance 800 710 250 PT 31.5 SEC (12.0-15.0) H 06/01/17 05:25 INR 2.99 (0.83-1.16) H 06/01/17 05:25 - Physical Exam Constitutional: no apparent distress, appears nourished Eyes: PERRL Ears, Nose, Mouth, Throat: hearing normal Cardiovascular: regular rate and rhythym Respiratory: no respiratory distress, reduced air movement Gastrointestinal: normoactive bowel sounds Skin: warm Musculoskeletal: generalized weakness Neurologic: AAOx3 Psychiatric: interacting appropriately, not anxious ICD10 Worksheet Patient Problems: Problems Problem Status Onset Hip fracture Acute Atrial fibrillation Acute
[2017-06-01] MEDS: LIDOCAINE 5% 1 EA PATCH TD SCH (12:14)
[2017-06-01] MEDS: PATCH REMOVAL 1 EA PATCH TD SCH (12:20)
[2017-06-01] MEDS ORDERED: WARFARIN SODIUM 1 MG TAB PO ONE (16:00)
[2017-06-01] MEDS: FAMOTIDINE 20 MG TAB PO SCH (16:19)
[2017-06-02] MEDS: oxyCODONE IR 5 MG TAB PO PRN ×2 (00:38→21:54)
[2017-06-02] MEDS: hydrALAZINE 20 MG/ML VIAL IVP PRN (04:15)
[2017-06-02 04:40] LABS: INR 2.48 (0.83-1.16); PROTIME(PATIENT) 27.1 SEC (12.0-15.0)
[2017-06-02 04:43] LABS: ANION GAP 4 mEq/L (8-16); CALCIUM 8.3 mg/dL (8.5-10.4); CARBON DIOXIDE 22 mEq/l (22-31); CHLORIDE 98 mEq/L (97-110); CREATININE 0.7 mg/dL (0.6-1.0); GLOMERULAR FILTRATION RATE > 60; GLUCOSE 88 mg/dL (70-100); POTASSIUM 4.2 mEq/L (3.5-5.2); SODIUM 124 mEq/L (134-144)
[2017-06-02] MEDS: LEVOTHYROXINE 112 MCG TAB PO SCH (06:33)
--- NOTE | 2017-06-02 08:30 | HOSPPROG ---
Hospitalist Progress Note Assessment/Plan: Patient is an 86-year-old female with a history of atrial fibrillation status post pacemaker placement. She was brought into the emergency room for further evaluation after she fell in her kitchen. Was noted that she had an acute left femur fracture. * Acute left femur fracture s/p repair Spasms much improved. Daughter has been working on the patient doing gentle stretches. 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 having spasms again/ daughter, Linda, to talk with the orthopedic surgeon about cont with the large wedge in place ( she is aware her mom may cause a redislocation of her leg)/ she needs to be frequently medicated due to having spasms which is caused by the large wedge. Subjective: Lizett is very sleepy, not complaining of any pain. Objective: Vital Signs Temp Pulse Resp BP Pulse Ox 36.2 C 65 16 144/69 H 94 06/02/17 07:59 06/02/17 07:59 06/02/17 07:59 06/02/17 07:59 06/02/17 07:59 Laboratory Results 06/01/17 04:30 06/02/17 04:10 06/01/17 06/02/17 06/03/17 05:59 05:59 05:59 Intake Total 2310 550 Output Total 1600 200 Balance 710 350 PT 27.1 SEC (12.0-15.0) H 06/02/17 04:10 INR 2.48 (0.83-1.16) H 06/02/17 04:10 - Physical Exam Constitutional: chronically ill appearing, uncomfortable Eyes: PERRL Ears, Nose, Mouth, Throat: hearing normal Cardiovascular: regular rate and rhythym Respiratory: no respiratory distress Gastrointestinal: normoactive bowel sounds Skin: warm, other (left hip with min swelling) Neurologic: AAOx3 Psychiatric: other (sleepy) ICD10 Worksheet Patient Problems: Problems Problem Status Onset Hip fracture Acute Atrial fibrillation Acute
[2017-06-02] MEDS: GABAPENTIN 100 MG CAP PO SCH ×2 (10:17→21:08)
[2017-06-02] MEDS: ACETAMINOPHEN 500 MG TAB PO SCH ×3 (10:17→21:09)
[2017-06-02] MEDS: SENNOSIDES/DOCUSATE SODIUM TAB PO SCH ×2 (10:17→23:31)
[2017-06-02] MEDS: METHOCARBAMOL 500 MG TAB PO SCH ×3 (10:17→23:30)
[2017-06-02] MEDS: LIDOCAINE 5% 1 EA PATCH TD SCH (10:18)
[2017-06-02] MEDS: SODIUM CHLORIDE 1,000 MG TAB PO SCH ×3 (10:18→18:28)
[2017-06-02] MEDS: LISINOPRIL 5 MG TAB PO SCH ×2 (10:18→21:08)
[2017-06-02] MEDS: AMIODARONE HCL 200 MG TAB PO SCH (10:18)
[2017-06-02] MEDS: BECLOMETHASONE QVAR 40 MDI IH SCH ×2 (12:22→21:24)
[2017-06-02] MEDS: PATCH REMOVAL 1 EA PATCH TD SCH (13:06)
[2017-06-02] MEDS ORDERED: WARFARIN SODIUM 2.5 MG TAB PO ONE ×2 (16:00→18:45)
[2017-06-02 16:12] VITALS: PULSE 60; RESP 16
--- NOTE | 2017-06-02 17:46 | SOAPPROG ---
SOAP Progress Note Assessment/Plan: Assessment: pt with dislocation s/p BRIJESH now reduced rec abd pillow when in bed if she cannot tolerate this she can try using a knee immobilzer to LLE pt c/o R hip pain and spasms has significant lumbar spine dz ANT and POST hip precautions SNF when medically able Plan: 05/27/17 09:44 05/27/17 09:45 05/31/17 07:23 06/02/17 17:45 Objective: Vital Signs Temp Pulse Resp BP Pulse Ox 36.5 C 60 16 114/52 L 95 06/02/17 16:00 06/02/17 16:00 06/02/17 16:00 06/02/17 16:00 06/02/17 16:00 Laboratory Results 06/01/17 04:30 06/02/17 04:10 06/01/17 06/02/17 06/03/17 05:59 05:59 05:59 Intake Total 2310 550 Output Total 1600 200 Balance 710 350 PT 27.1 SEC (12.0-15.0) H 06/02/17 04:10 INR 2.48 (0.83-1.16) H 06/02/17 04:10 ICD10 Worksheet Patient Problems: Problems Problem Status Onset Hip fracture Acute Atrial fibrillation Acute
[2017-06-02] MEDS: FAMOTIDINE 20 MG TAB PO SCH (18:28)
[2017-06-03 04:42] LABS: COLOR YELLOW; LEUKOCYTE ESTERASE,URINE 2+ (NEGATIVE); NITRITE,URINE NEGATIVE (NEGATIVE)
[2017-06-03 04:49] LABS: BACTERIA 4+ /hpf (NONE SEEN); RBC,URINE 50-182 /hpf (0-3); WBC,URINE 50-182 /hpf (0-3)
[2017-06-03 05:00] LABS: HEMOGLOBIN 11.1 g/dL (12.6-16.3)
[2017-06-03 05:12] LABS: INR 2.12 (0.83-1.16); PROTIME(PATIENT) 23.9 SEC (12.0-15.0)
[2017-06-03 05:30] LABS: ANION GAP 7 mEq/L (8-16); CALCIUM 8.4 mg/dL (8.5-10.4); CARBON DIOXIDE 23 mEq/l (22-31); CHLORIDE 96 mEq/L (97-110); CREATININE 0.7 mg/dL (0.6-1.0); GLOMERULAR FILTRATION RATE > 60; GLUCOSE 90 mg/dL (70-100); POTASSIUM 4.7 mEq/L (3.5-5.2); SODIUM 126 mEq/L (134-144)
[2017-06-03] MEDS: LEVOTHYROXINE 112 MCG TAB PO SCH (06:13)
[2017-06-03 07:34] VITALS: BP 138/68; TEMP 98; O2SAT 95
[2017-06-03] MEDS: LIDOCAINE 5% 1 EA PATCH TD SCH (07:52)
[2017-06-03] MEDS: LISINOPRIL 5 MG TAB PO SCH (07:53)
[2017-06-03] MEDS: SODIUM CHLORIDE 1,000 MG TAB PO SCH ×2 (07:53→12:42)
[2017-06-03] MEDS: ACETAMINOPHEN 500 MG TAB PO SCH (07:53)
[2017-06-03] MEDS: METHOCARBAMOL 500 MG TAB PO SCH (07:53)
[2017-06-03] MEDS: SENNOSIDES/DOCUSATE SODIUM TAB PO SCH (07:53)
[2017-06-03] MEDS: GABAPENTIN 100 MG CAP PO SCH (07:54)
[2017-06-03] MEDS: AMIODARONE HCL 200 MG TAB PO SCH (07:54)
--- NOTE | 2017-06-03 09:13 | SOAPPROG ---
SOAP Progress Note Assessment/Plan: Assessment: pt with dislocation s/p BRIJESH now reduced rec abd pillow when in bed if she cannot tolerate this she can try using a knee immobilzer to LLE pt c/o R hip pain and spasms has significant lumbar spine dz ANT and POST hip precautions SNF when medically able dressing ok to be removed POD 14 f/u [facility] 3 wks postop call with questions Plan: 05/27/17 09:44 05/27/17 09:45 05/31/17 07:23 06/02/17 17:45 06/03/17 09:12 Objective: Vital Signs Temp Pulse Resp BP Pulse Ox 36.7 C 60 16 138/68 H 95 06/03/17 07:32 06/03/17 07:32 06/03/17 07:32 06/03/17 07:53 06/03/17 07:32 Laboratory Results 06/03/17 04:16 06/03/17 04:16 06/02/17 06/03/17 06/04/17 05:59 05:59 05:59 Intake Total 550 2050 Output Total 200 300 Balance 350 1750 PT 23.9 SEC (12.0-15.0) H 06/03/17 04:16 INR 2.12 (0.83-1.16) H 06/03/17 04:16 ICD10 Worksheet Patient Problems: Problems Problem Status Onset Hip fracture Acute Atrial fibrillation Acute
[2017-06-03] MEDS: BECLOMETHASONE QVAR 40 MDI IH SCH (09:48)
--- NOTE | 2017-06-03 11:54 | PDIAF ---
- Diagnosis Diagnosis: hip fx Code Status: Do Not Resuscitate - Medication Management Discharge Medications: Medications to Continue on Transfer Levothyroxine [Synthroid 112 mcg (*)] 112 mcg PO DAILY06 07/29/12 [Last Taken ] Multivitamins [Multivitamin (*)] 1 each PO DAILY@12 07/29/12 [Last Taken ] Albuterol [Proventil Inhaler HFA (*)] 2 puffs IH Q4 PRN 12/25/14 [Last Taken Unknown] Beclomethasone Qvar 40 [Qvar 40 (*)] 2 puffs IH BID 12/25/14 [Last Taken 1 Day Ago] Amiodarone HCl [Pacerone] 100 mg PO DAILY 07/31/15 [Last Taken 05/23/17] Ascorbic Acid [Vitamin C 500 mg (*)] 500 mg PO DAILY@12 07/31/15 [Last Taken ] Cholecalciferol Vit D3 [Vitamin D3 (*)] 1,000 units PO DAILY@12 07/31/15 [Last Taken 05/23/17] Herbals/Supplements -Info Only 1 ea PO DAILY 07/31/15 [Last Taken Unknown] Warfarin Sodium [Coumadin 2.5MG (*)] 2.5 mg PO MOWEFR 07/31/15 [Last Taken 07/27] Warfarin Sodium [Coumadin 5MG (*)] 5 mg PO SUTUTHSA 07/31/15 [Last Taken 1 Day Ago] Famotidine [Pepcid] 5 mg PO DAILY@18 05/23/17 [Last Taken 05/22/17] Lisinopril [Zestril 2.5 mg (*)] 2.5 mg PO BID 05/23/17 [Last Taken 05/23/17] Acetaminophen [Tylenol ES 500 mg (*)] 1,000 mg PO TID tab 06/03/17 [Last Taken Unknown] Estradiol 0.5 mg PO DAILY #30 tab 06/03/17 [Last Taken Unknown] Ferrous Sulfate [Slow Fe 140 MG (*)] 140 mg PO DAILY #30 tab 06/03/17 [Last Taken Unknown] Lidocaine 5% [Lidoderm 5% Patch (*)] 1 ea TD DAILY patch 06/03/17 [Last Taken Unknown] MAGNESIUM [Magnesium Oxide 200 mg] 1 tab PO DAILY #30 tab 06/03/17 [Last Taken Unknown] Patch Removal 1 ea TD DAILY@1200 patch 06/03/17 [Last Taken Unknown] Polyethylene Glycol 3350 [Miralax 17 gm (*)] 17 gm PO DAILY PRN #0 pkt 06/03/17 [Last Taken Unknown] Pramipexole Di-HCl [Mirapex 0.125 mg (*)] 0.125 mg PO HS tab 06/03/17 [Last Taken Unknown] Sennosides/Docusate Sodium [Senokot-S] 1 - 2 tab PO BID tab 06/03/17 [Last Taken Unknown] Sodium Chloride [Salt Tablet] 1,000 mg PO TIDMEAL tab 06/03/17 [Last Taken Unknown] oxyCODONE IR [Oxycodone Ir (*)] 5 - 10 mg PO Q3HRS PRN #0 tab 06/03/17 [Last Taken Unknown] Discharge Medications: Refer to the Discharge Home Medication list for PRN reason. PICC Care - Routine: N/A - Orders Services needed: Registered Nurse, Physical Therapy, Occupational Therapy Diet Recommendation: no restrictions on diet - Labs/Radiology BMP Date: 06/05/17 HCT/HGB Date: 06/05/17 PT/INR Date: 06/05/17 - Follow Up Care Current Providers and Referrals: Patient,NotPresent [Unknown] - As per Instructions
[2017-06-03] MEDS: PATCH REMOVAL 1 EA PATCH TD SCH (12:52)
[2017-06-03] MEDS ORDERED: WARFARIN SODIUM 2.5 MG TAB PO SCH (16:00)
[2017-06-03] MEDS ORDERED: PRAMIPEXOLE 0.125 MG TAB PO SCH (21:00)
--- NOTE | 2017-06-04 00:27 | GDS ---
[f rep st] DISCHARGE SUMMARY DISCHARGE DIAGNOSES: 1. Hyponatremia. 2. Acute left femoral neck fracture. 3. Hip dislocation. 4. History of atrial fibrillation. 5. Urinary retention. 6. History of pulmonary fibrosis. 7. History of hypertension. 8. History of diastolic heart failure. 9. Hypothyroidism. CONSULTATIONS: 1. Dr. Montoya of Orthopedics. 2. Dr. Flores of Trauma. STUDIES AND PROCEDURES DONE: 1. Total hip arthroplasty of the left hip. 2. Echocardiogram. 3. Reduction of the left hip. PHYSICAL EXAMINATION: GENERAL: The patient is alert. VITAL SIGNS: Afebrile at 36.7, pulse is 60, respiratory rate 16, blood pressure is 138/68. She is saturating 95% on 2 L. I have seen and evaluated the patient on the day of discharge. HOSPITAL COURSE: The patient is an 86-year-old female who suffered a mechanical fall, and presented to the emergency room with complaints of hip pain. She was evaluated and diagnosed with: 1. Acute left femur fracture. During this hospitalization. The patient has received surgical inte rvention from Dr. Montoya. A total hip arthroplasty has been performed. She has tolerated this p rocedure well. 2. Hip dislocation on 05/27/2017. This required reduction. The patient has been placed on precaut ions, and is stable with these precautions. 3. Leg spasms. During this hospitalization, I reviewed with the patient's daughter at length regar ding these intermittent leg spasms. They appear to be worse in the evening than during the day. Sh e has been initiated on Mirapex at bedtime in an attempt to calm these leg spasms. 4. History of atrial fibrillation. She has had regular rhythm during this hospitalization. She is on Coumadin for anticoagulation therapy. We will continue this at the time of disposition. Her IN R today is 2.12. She has been reinitiated on her regular dose of Coumadin at the time of dispositio n. 5. Urinary retention. This has resolved. 6. History of pulmonary fibrosis. This is stable. 7. Hyponatremia. This is acute on chronic. The patient's baseline sodium level is approximately 1 28. She has been initiated on salt tablets and her sodium level is improving. She will continue th joselin salt tablets at the time of disposition. 8. History of chronic diastolic heart failure. She has no signs of failure at this time. Echocard iogram is stable. She also has a pacemaker, which has been interrogated during this hospitalization and is within normal limits. 9. History of hypothyroidism. She has continued her Synthroid as previously prescribed. DISPOSITION: The patient will be discharged to [facility] for further therapies and ngoc cotuitbenita. Pending studies include a urine culture. DISCHARGE MEDICATIONS: Please refer to EMR form. I have adjusted some of the patient's previously prescribed home medications after having a lengthy conversation with her daughter. The patient's es tradiol has been cut in half to 0.5 mg daily. She has also been initiated on Mirapex 0.125 mg at be dtime, and salt tablets 100 mg t.i.d. She will remain on magnesium as well as oxycodone IR. FOLLOWUP: With Dr. Montoya, as well as her primary care doctor. I spent greater than 35 minutes in the care, coordination, and management of this patient's disposit ion. She will have followup laboratory evaluations done on 06/05/2017 with further recommendations to be made at that time. Her urine culture should also be followed up on in the outpatient setting. /[id number]/MODL
== END 2017-06-03 14:35 | DRG 470 ==
LOC: EDUNIT# → F3N 20:15
PROVIDERS: ADMIT Hospitalist; ATTEND Hospitalist
PROC: 0SRB04Z Replacement of Left Hip Joint with Ceramic on Polyethylene Synthetic Substitute, Open Approach (ICD-10-PCS; principal; 2017-05-23)
PROC: 0QS7XZZ Reposition Left Upper Femur, External Approach (ICD-10-PCS; 2017-05-24)
DX: S72.002A Fracture of unspecified part of neck of left femur, initial encounter for closed fracture (principal); W19.XXXA Unspecified fall, initial encounter; Y93.G1 Activity, food preparation and clean up; Y92.010 Kitchen of single-family (private) house as the place of occurrence of the external cause; I48.91 Unspecified atrial fibrillation; T84.021A Dislocation of internal left hip prosthesis, initial encounter; R29.6 Repeated falls; Y92.230 Patient room in hospital as the place of occurrence of the external cause; E87.1 Hypo-osmolality and hyponatremia; R33.9 Retention of urine, unspecified; I11.0 Hypertensive heart disease with heart failure; I50.32 Chronic diastolic (congestive) heart failure; E03.9 Hypothyroidism, unspecified; J84.10 Pulmonary fibrosis, unspecified; Z85.3 Personal history of malignant neoplasm of breast; Z79.01 Long term (current) use of anticoagulants; Z95.0 Presence of cardiac pacemaker
CPT/HCPCS: 92507-GN; 92523-GN; 96374; 97110-GP; 97116-GP; 97161-GP; 97164-GP; 97165-GO; 97168-GO; 97530-GO; 97530-GP; 97535-GO; G8978-GP-CM; G8979-GP-CI; G8979-GP-CK; G8987-GO-CM; G8988-GO-CJ; G9165-GN-CK; G9166-GN-CI; J0171; J0360; J0690; J1100; J1170; J1885; J2250; J2704; J2795; J3010; J3370; J3430

== ENCOUNTER 2017-10-13 12:16 | Day surgery (SDC) | payer OTHER ==
[2017-10-13] MEDS ORDERED: fentaNYL 100 MCG/2 ML INJ IVP ONE (12:22)
[2017-10-13] MEDS ORDERED: NS 500 ML IV ONE (12:22)
[2017-10-13] MEDS ORDERED: ATROPINE SULFATE 1 MG/10 ML SYR IVP ONE (12:22)
[2017-10-13] MEDS ORDERED: MIDAZOLAM 2 MG/2 ML VIAL IVP ONE (12:22)
--- NOTE | 2017-10-13 12:55 | CPEKG ---
Heart Rate: 97 RR Interval: 619 P-R Interval: 184 QRSD Interval: 118 QT Interval: 408 QTC Interval: 519 P [place]: 0 QRS [place]: -58 T Wave [place]: 120 EKG Severity - ABNORMAL ECG - EKG Impression: VENTRICULAR-PACED COMPLEXES EKG Impression: LVH WITH IVCD, LAD AND SECONDARY REPOL ABNRM Electronically Signed By: Leo Anna 13-Oct-2017 15:54:45
--- NOTE | 2017-10-13 13:17 | PDANEPAE ---
ANE History of Present Illness a fib ANE Past Medical History - Cardiovascular History Hx Hypertension: Yes Hx Arrhythmias: Yes Hx Chest Pain: No Hx Coronary Artery / Peripheral Vascular Disease: No Hx CHF / Valvular Disease: No Hx Palpitations: Yes Cardiovascular History Comment: atrial fib pacer in place and working, on anticoagulation - Pulmonary History Hx COPD: Yes Hx Asthma/Reactive Airway Disease: No Hx Recent Upper Respiratory Infection: No Hx Oxygen in Use at Home: Yes Hx Sleep Apnea: No - Neurologic History Hx Dementia: Yes - Endocrine History Hx Diabetes: No Hypothyroid: Yes - Chronic Pain History Chronic Pain: No ANE Review of Systems Review of systems is: negative Review of Systems: - Pacemaker Date Pacemaker Last Checked: 3-1/2 months ago ANE Patient History - Allergies Allergies/Adverse Reactions: ciprofloxacin HCl [From Cipro] Allergy (Intermediate, Verified 05/23/17 18:13) sulfamethoxazole [From Bactrim] Allergy (Intermediate, Verified 05/23/17 18:13) trimethoprim [From Bactrim] Allergy (Intermediate, Verified 05/23/17 18:13) cyclobenzaprine [From Flexeril] Allergy (Verified 05/30/17 00:15) Other-Enter Comments levofloxacin [From Levaquin in D5W] Allergy (Verified 05/23/17 18:13) - Home Medications Home Medications: Levothyroxine [Synthroid 112 mcg (*)] 112 mcg PO DAILY06 07/29/12 [Last Taken ] Multivitamins [Multivitamin (*)] 1 each PO DAILY@07/29/12 [Last Taken ] Albuterol [Proventil Inhaler HFA (*)] 2 puffs IH Q4 PRN 12/25/14 [Last Taken Unknown] Beclomethasone Qvar 40 [Qvar 40 (*)] 2 puffs IH BID 12/25/14 [Last Taken 1 Day Ago ~01/19/17] Amiodarone HCl [Pacerone] 100 mg PO DAILY 07/31/15 [Last Taken 05/23/17] Ascorbic Acid [Vitamin C 500 mg (*)] 500 mg PO DAILY@07/31/15 [Last Taken ] Cholecalciferol Vit D3 [Vitamin D3 (*)] 1,000 units PO DAILY@07/31/15 [Last Taken 05/23/17] Herbals/Supplements -Info Only 1 ea PO DAILY 07/31/15 [Last Taken Unknown] Warfarin Sodium [Coumadin 2.5MG (*)] 2.5 mg PO MOWEFR 07/31/15 [Last Taken 07/27] Warfarin Sodium [Coumadin 5MG (*)] 5 mg PO SUTUTHSA 07/31/15 [Last Taken 1 Day Ago ~01/19/17] Famotidine [Pepcid] 5 mg PO DAILY@18 05/23/17 [Last Taken 05/22/17] Lisinopril [Zestril 2.5 mg (*)] 2.5 mg PO BID 05/23/17 [Last Taken 05/23/17] - Smoking Hx Smoking Status: Never smoked ANE Labs/Vital Signs - Labs Result Diagrams: 10/13/17 13:00 - Vital Signs Height: 165 cm Weight: 57.2 kg ANE Physical Exam - Airway Neck exam: FROM Mallampati Score: Class 2 Mouth exam: normal dental/mouth exam - Pulmonary Pulmonary: no respiratory distress - Cardiovascular Cardiovascular: regular rate and rhythym - ASA Status ASA Status: IV ANE Anesthesia Plan Total IV Anesthesia: Yes
[2017-10-13 13:19] LABS: INR 2.33 (0.83-1.16); PROTIME(PATIENT) 25.8 SEC (12.0-15.0)
[2017-10-13 13:20] LABS: APTT 39.4 SEC (23.0-38.0)
[2017-10-13 13:30] LABS: ANION GAP 12 mEq/L (8-16); CALCIUM 9.5 mg/dL (8.5-10.4); CARBON DIOXIDE 26 mEq/l (22-31); CHLORIDE 90 mEq/L (97-110); CREATININE 0.8 mg/dL (0.6-1.0); GLOMERULAR FILTRATION RATE > 60; GLUCOSE 108 mg/dL (70-100); MAGNESIUM 1.8 mg/dL (1.6-2.3); SODIUM 128 mEq/L (134-144)
[2017-10-13] MEDS ORDERED: PROPOFOL 200 MG/20 ML VIAL ONE (13:42)
--- NOTE | 2017-10-13 14:15 | PDGENHP ---
History & Physical Chief Complaint: Fatigue History of Present Illness: Patient is an 86 y/o female with history of atrial fibrillation (paroxysmal, on coumadin, [id number] score of 5), HTN, breast cancer, SSS s/p PPM, dementia, and hypothyroidism with atrial fibrillation since 10-10-17. Functional decline is noted by patient with this arrhythmia. Uninterrupted coumadin. Daughter present with the patient this afternoon. Pertinent Past, Social, Family History: HTN, SSS s/p PPM, pAF, hypothyroidism, breast cancer, dementia Relevant Physical Exam: Irregular heart rate with intermittent pacing. Breath sounds were clear. No edema Cardiorespiratory Assessment: Irregular rate/rhythm. Clear breath sounds.
--- NOTE | 2017-10-13 14:47 | POSTANESTH ---
Post Anesthetic Evaluation Cardiovascular Status: Normal, Stable Respiratory Status: Normal, Stable Level of Consciousness/Mental Status: Can Participate in Eval Pain Control: Adequate, Prn Tx Ordered Nausea/Vomiting Control: Adequate, Prn Tx Ordered Complications Possibly Related to Anesthesia: None Noted
--- NOTE | 2017-10-13 15:00 | PDCARD ---
Cardioversion Procedure Procedure: Consents for anesthesia and cardiology (cardioversion) were signed and in chart. Risks and benefits of this procedure were discussed with patient and daughter ( Physician Gynaecological Oncologist). Coumadin has been therapeutic (documents were available for review) for the past month. No KIM was recommended given the therapeutic INRs. [facility] was present given the history of PPM for SSS. Atrial fibrillation has been noted for the past three days. A single synchronized shock at 200 J was delivered with initial success noted ( atrial fib/flutter at 80 bpm with intermittent pacing to normal sinus rhythm at 65 bpm). During atrial lead interrogation, it was noted that the patient returned to atrial flutter. A second shock, also synchronized at 200 J was delivered with return to normal sinus rhythm noted. Discussion with daughter about continued Amiodarone at 400 mg per day for at least the next week (prior to follow up with Dr. Nelly Amezcua). Patient did well with both cardioversions. Indications: atrial fibrillation Consent: signed and in chart Anticoagulation: warfarin Procedural Details: Pads were placed in anterior-posterior position. Synchronized cardioversion attempt #1: 200J Synchronized cardioversion attempt #2: 200J Results: normal sinus rhythm Conclusions: successful cardioversion Conclusion Comment: Uncertain if the patient will successfully remain in sinus rhythm, but will have patient follow up with cardiology in the outpatient setting in one week for reinterrogation of the device. Patient Problems: Problems Problem Status Onset Atrial fibrillation Acute Hip fracture Acute
--- NOTE | 2017-10-13 15:46 | CPEKG ---
Heart Rate: 65 RR Interval: 923 P-R Interval: 216 QRSD Interval: 112 QT Interval: 460 QTC Interval: 479 QRS [place]: -58 T Wave [place]: 119 EKG Severity - ABNORMAL ECG - EKG Impression: ATRIAL-PACED RHYTHM EKG Impression: LVH WITH IVCD, LAD AND SECONDARY REPOL ABNRM Electronically Signed By: Leo Anna 13-Oct-2017 15:54:39
== END 2017-10-13 16:00 | disposition home or self-care (01) ==
LOC: FCATH 12:16
PROVIDERS: ATTEND Internal Medicine Interventional Cardiology
PROC: 5A2204Z Restoration of Cardiac Rhythm, Single (ICD-10-PCS; principal; 2017-10-13)
DX: I48.92 Unspecified atrial flutter (principal); R26.2 Difficulty in walking, not elsewhere classified; I10 Essential (primary) hypertension; G47.00 Insomnia, unspecified; E87.1 Hypo-osmolality and hyponatremia; E03.9 Hypothyroidism, unspecified; I48.91 Unspecified atrial fibrillation; I49.5 Sick sinus syndrome
CPT/HCPCS: J0461; J2704

== ENCOUNTER 2017-10-25 07:54 | Inpatient (IN) | payer OTHER ==
--- NOTE | 2017-10-25 08:04 | EDPHY ---
H & P Time Seen by Provider: 10/25/17 08:03 - Personal History Tetanus Vaccine Date: within last 10 yrs - Medical/Surgical History Hx Asthma: No Hx Chronic Respiratory Disease: Yes Hx Diabetes: No Hx Cardiac Disease: Yes Hx Renal Disease: No Hx Cirrhosis: No Hx Alcoholism: No Hx HIV/AIDS: No Hx Splenectomy or Spleen Trauma: No Other PMH: Afib/SSS-pacer, x4 cardioversions,. Dyastolic dysfunction HTN/ Hypothyroid/cancer- breast/GB/bladder tuck/lt masectomey/HYST/TA, tonsillectomy , heart cath 09 clean - Social History Smoking Status: Never smoked Constitutional: Initial Vital Signs Temperature (C) 36.5 C 10/25/17 08:07 Heart Rate 66 10/25/17 08:07 Respiratory Rate 16 10/25/17 08:07 Blood Pressure 214/99 H 10/25/17 08:07 O2 Sat (%) 96 10/25/17 08:07 O2 Delivery Mode Room Air O2 (L/minute) 2 Allergies/Adverse Reactions: ciprofloxacin HCl [From Cipro] Allergy (Intermediate, Verified 05/23/17 18:13) sulfamethoxazole [From Bactrim] Allergy (Intermediate, Verified 05/23/17 18:13) trimethoprim [From Bactrim] Allergy (Intermediate, Verified 05/23/17 18:13) cyclobenzaprine [From Flexeril] Allergy (Verified 05/30/17 00:15) Other-Enter Comments levofloxacin [From Levaquin in D5W] Allergy (Verified 05/23/17 18:13) Home Medications: Medication Instructions Recorded Multivitamins [Multivitamin (*)] 1 each PO DAILY@07/29/12 Albuterol [Proventil Inhaler HFA 2 puffs IH Q4 PRN 12/25/14 (*)] Beclomethasone Qvar 40 [Qvar 40 2 puffs IH BID 12/25/14 (*)] Ascorbic Acid [Vitamin C 500 mg 500 mg PO DAILY@07/31/15 (*)] Cholecalciferol Vit D3 [Vitamin D3 1,000 units PO DAILY@07/31/15 (*)] Herbals/Supplements -Info Only 1 ea PO DAILY 07/31/15 Warfarin Sodium [Coumadin 2.5MG 2.5 mg PO TH@07/31/15 (*)] Warfarin Sodium [Coumadin 5MG (*)] 5 mg PO SUMOTUWEFR@07/31/15 Sodium Chloride [Salt Tablet] 1,000 mg PO TIDMEAL tab 06/03/17 Amiodarone HCl [Pacerone (*)] 100 mg PO DAILY 10/13/17 Cyanocobalamin [Vitamin B12 (*)] 1,000 mcg PO DAILY 10/13/17 Docusate Sodium [Colace 100 MG (*)] 100 mg PO DAILY 10/13/17 Furosemide [Lasix 20 MG (*)] 20 mg PO DAILY 10/13/17 Levothyroxine [Synthroid 125 mcg 125 mcg PO DAILY06 10/13/17 (*)] Potassium Cl [Klor-Con] 10 meq PO DAILY 10/13/17 Medical Decision Making - Diagnostics Imaging: I viewed and interpreted images myself ED Course/Re-evaluation: CHIEF COMPLAINT: Falls HISTORY OF PRESENT ILLNESS: 87-year-old female who on October 13 had cardioversion for atrial fibrillation. She seemed to do well after that and the next day according to her daughter was 1 of her best days recently. On the she started to feel little bit weak and dizzy according to the patient. That progressed until this morning where she was using her walker to back up into the toilet and she just slumped on unable to support herself. She feels very dizzy and very weak but not focally. She denies fevers or chills. She does have frequent urination denies that it is more frequent. Did not actually hit the ground when she slid. Programmer Or Analyst helped her but left shoulder is painful from being grabbed under the left arm apparently. She denies any other pain or injuries. She has just generally been doing worse the last several days. REVIEW OF SYSTEMS: A 10 point review of systems was performed and is negative with the exception of the elements mentioned in the history of present illness. PHYSICAL EXAM: HR, BP, O2 Sat, RR. Temp noted General Appearance: Alert, well hydrated, appropriate, and non-toxic appearing. Head: Atraumatic without scalp tenderness or obvious injury Eyes: Pupils equal, round, reactive to light and accommodation, EOMI, no trauma , no injection. Ears: Clear bilaterally, no perforation, normal landmarks Nose: Atraumatic, no rhinorrhea, clear. Throat: There is no erythema or exudates, no lesions, normal tonsils, mucus membranes moist. Neck: Supple, 2+ carotid upstroke, nontender, no lymphadenopathy. Respiratory: No retractions, no distress, no wheezes, and no accessory muscle use. Lungs are clear to auscultation bilaterally. Cardiovascular: Regular rate and rhythm, no murmurs, rubs, or gallops. Bilateral carotid, radial, dorsalis pedis, and posterior tibial pulses intact. Good capillary refill all extremities. Gastrointestinal: Abdomen is soft, nontender, non-distended, no masses, no rebound, no guarding, no peritoneal signs. Musculoskeletal: Pain with the left shoulder, Normal active ROM of all extremities, atraumatic. Neurological: Alert, appropriate, and interactive. The patient has normal DTRs and non-focal cranial nerves, motor, sensory, and cerebellar exam. Skin: No rashes, good turgor, no nodules on palpation. Past medical history: long term dependent, dementia, atrial relation, pacemaker Past surgical history: Pacemaker, recent cardioversion Family history: Contributory Social history: Lives with assistance continually. Walker dependent. . Not abuse tobacco drugs or alcohol DIAGNOSTICS/PROCEDURES/CRITICAL CARE TIME: Study: three views of the left shoulder Indication: left shoulder pain Results: After viewing the images myself on the PACS system. My interpretation of the images is: no acute process. The radiologist interpretation is pending at the time of this dictation. I have discussed the above x-rays with the radiologist. DIFFERENTIAL DIAGNOSIS: The differential diagnosis for the patient's weakness included but was not limited to vasovagal syncope, arrhythmia, dehydration, cardiogenic causes, neurogenic causes, electrolyte problems, urinary tract infection, and blood loss. MEDICAL DECISION MAKING: This patient does not appear to be in acute distress however she is persistently weak and dizzy over the last several days. She had a nerve fall this morning was caught by her oyster shipper. She does have some left shoulder pain from being lifted up the left arm. The daughter is at the refusing for us to obtain a urinalysis. She states clearly that all cold patient's her chronically colonized according to a conversation she had with an infectious disease doctor couple of years ago when this patient hip fracture. She states that even if we see bacteria we are not going to treated anyway and it is not the reason she is here. Consequently I have told her that that we will not obtain urine. However, my suspicion is that conversation took place when the patient was bed ridden with a hip fracture and had an indwelling Sofia. I still believe that weak and dizziness in this age group can certainly be caused by an acute urinary tract infection. Her UA indicates a significant acute UTI. Reevaluated patient and discussed results with her and her daughter. I've recommended 1gm IV Rocephin and admission. Plan to consult with ID. Spoke with hospitalist service. Dr. Brown accepts admission. - Data Points Laboratory Results: Laboratory Results 10/25/17 08:25 10/25/17 08:25 10/25/17 10/25/17 10/25/17 09:18 08:25 08:25 WBC RBC Hgb Hct MCV MCH MCHC RDW Plt Count MPV Neut % (Auto) Lymph % (Auto) [place] % (Auto) Eos % (Auto) Baso % (Auto) Nucleat RBC Rel Count Absolute Neuts (auto) Absolute Lymphs (auto) Absolute Monos (auto) Absolute Eos (auto) Absolute Basos (auto) Absolute Nucleated RBC Immature Gran % Immature Gran # PT 28.9 SEC H SEC (12.0-15.0) INR 2.74 H (0.83-1.16) APTT 37.7 SEC SEC (23.0-38.0) Sodium 135 mEq/L mEq/L (134-144) Potassium 3.7 mEq/L mEq/L (3.5-5.2) Chloride 95 mEq/L L mEq/L (97-110) Carbon Dioxide 29 mEq/l mEq/l (22-31) Anion Gap 11 mEq/L mEq/L (8-16) BUN 21 mg/dL mg/dL (7-23) Creatinine 0.8 mg/dL mg/dL (0.6-1.0) Estimated GFR > 60 Glucose 121 mg/dL H mg/dL (70-100) Calcium 9.8 mg/dL mg/dL (8.5-10.4) Total Bilirubin 0.8 mg/dL mg/dL (0.1-1.4) Conjugated Bilirubin 0.2 mg/dL mg/dL (0.0-0.5) Unconjugated Bilirubin 0.6 mg/dL mg/dL (0.0-1.1) AST 44 IU/L IU/L (14-46) ALT 43 IU/L IU/L (9-52) Alkaline Phosphatase 96 IU/L IU/L (38-126) Total Protein 7.1 g/dL g/dL (6.3-8.2) Albumin 4.0 g/dL g/dL (3.5-5.0) Lipase 328 IU/L H IU/L (23-300) Urine Color YELLOW Urine Appearance MODERATELY TURBID Urine pH 7.0 (5.0-7.5) Ur Specific [place] 1.008 (1.002-1.030) Urine Protein NEGATIVE (NEGATIVE) Urine Ketones NEGATIVE (NEGATIVE) Urine Blood NEGATIVE (NEGATIVE) Urine Nitrate POSITIVE H (NEGATIVE) Urine Bilirubin NEGATIVE (NEGATIVE) Urine Urobilinogen NEGATIVE EU EU (0.2-1.0) Ur Leukocyte Esterase 3+ H (NEGATIVE) Urine RBC NONE SEEN /hpf /hpf (0-3) Urine WBC 50-182 /hpf H /hpf (0-3) Ur Epithelial Cells TRACE /lpf /lpf (NONE-1+) Urine Bacteria 1+ /hpf H /hpf (NONE SEEN) Urine Glucose NEGATIVE (NEGATIVE) 10/25/17 08:25 WBC 5.39 10^3/uL 10^3/uL (3.80-9.50) RBC 3.97 10^6/uL L 10^6/uL (4.18-5.33) Hgb 13.3 g/dL g/dL (12.6-16.3) Hct 38.7 % % (38.0-47.0) MCV 97.5 fL fL (81.5-99.8) MCH 33.5 pg pg (27.9-34.1) MCHC 34.4 g/dL g/dL (32.4-36.7) RDW 13.4 % % (11.5-15.2) Plt Count 254 10^3/uL 10^3/uL (150-400) MPV 8.6 fL L fL (8.7-11.7) Neut % (Auto) 72.6 % % (39.3-74.2) Lymph % (Auto) 16.5 % % (15.0-45.0) [place] % (Auto) 8.2 % % (4.5-13.0) Eos % (Auto) 0.6 % % (0.6-7.6) Baso % (Auto) 1.5 % % (0.3-1.7) Nucleat RBC Rel Count 0.0 % % (0.0-0.2) Absolute Neuts (auto) 3.92 10^3/uL 10^3/uL (1.70-6.50) Absolute Lymphs (auto) 0.89 10^3/uL L 10^3/uL (1.00-3.00) Absolute Monos (auto) 0.44 10^3/uL 10^3/uL (0.30-0.80) Absolute Eos (auto) 0.03 10^3/uL 10^3/uL (0.03-0.40) Absolute Basos (auto) 0.08 10^3/uL 10^3/uL (0.02-0.10) Absolute Nucleated RBC 0.00 10^3/uL 10^3/uL (0-0.01) Immature Gran % 0.6 % % (0.0-1.1) Immature Gran # 0.03 10^3/uL 10^3/uL (0.00-0.10) PT INR APTT Sodium Potassium Chloride Carbon Dioxide Anion Gap BUN Creatinine Estimated GFR Glucose Calcium Total Bilirubin Conjugated Bilirubin Unconjugated Bilirubin AST ALT Alkaline Phosphatase Total Protein Albumin Lipase Urine Color Urine Appearance Urine pH Ur Specific [place] Urine Protein Urine Ketones Urine Blood Urine Nitrate Urine Bilirubin Urine Urobilinogen Ur Leukocyte Esterase Urine RBC Urine WBC Ur Epithelial Cells Urine Bacteria Urine Glucose Medications Given: Discontinued Medications Sodium Chloride (Ns) 1,000 mls @ 0 mls/hr IV EDNOW ONE; Wide Open PRN Reason: Protocol Stop: 10/25/17 08:06 Last Admin: 10/25/17 08:25 Dose: 1,000 mls Departure - Departure Disposition: [facility] Clinical Impression: Weakness, Dizzy UTI (urinary tract infection) Qualifiers: Urinary tract infection type: site unspecified Hematuria presence: without hematuria Qualified Code(s): N39.0 - Urinary tract infection, site not specified Fall Qualifiers: Encounter type: initial encounter Qualified Code(s): W19.XXXA - Unspecified fall, initial encounter Condition: Fair Referrals: Patient,NotPresent [Unknown] - As per Instructions
[2017-10-25] MEDS ORDERED: NS 1,000 ML IV ONE (08:05)
--- NOTE | 2017-10-25 08:13 | CPEKG ---
Heart Rate: 65 RR Interval: 923 P-R Interval: 164 QRSD Interval: 116 QT Interval: 468 QTC Interval: 487 P Lester: 0 QRS Lester: -57 T Wave Lester: 104 EKG Severity - ABNORMAL ECG - EKG Impression: PACEMAKER SPIKES OR ARTIFACTS EKG Impression: SINUS RHYTHM EKG Impression: PROBABLE LEFT ATRIAL ABNORMALITY EKG Impression: LVH WITH IVCD, LAD AND SECONDARY REPOL ABNRM EKG Impression: INFERIOR INFARCT, AGE INDETERMINATE Electronically Signed By: Scott Cisse 25-Oct-2017 14:12:26
[2017-10-25 08:33] LABS: % IMMATURE GRANULYOCYTES 0.6 % (0.0-1.1); ABSOLUTE IMMATURE GRANULOCYTES 0.03 10^3/uL (0.00-0.10); ADD DIFF? NO; ADD MORPH? NO; ADD SCAN? NO; ATYPICAL LYMPHOCYTE FLAG 20 (0-99); FRAGMENT RBC FLAG 0 (0-99); HEMATOCRIT 38.7 % (38.0-47.0); HEMOGLOBIN 13.3 g/dL (12.6-16.3); LEFT SHIFT FLG 0 (0-99); LIPEMIA HEMOLYSIS FLAG 90 (0-99); MEAN CELL HEMOGLOBIN 33.5 pg (27.9-34.1); MEAN CELL HEMOGLOBIN CONCENTR. 34.4 g/dL (32.4-36.7); MEAN CELL VOLUME 97.5 fL (81.5-99.8); MEAN PLATELET VOLUME 8.6 fL (8.7-11.7); PLATELET CLUMPS FLAG 0 (0-99); PLATELET COUNT 254 10^3/uL (150-400); RED BLOOD CELL COUNT 3.97 10^6/uL (4.18-5.33); RED CELL DISTRIBUTION WIDTH 13.4 % (11.5-15.2)
[2017-10-25 08:43] LABS: APTT 37.7 SEC (23.0-38.0); INR 2.74 (0.83-1.16); PROTIME(PATIENT) 28.9 SEC (12.0-15.0)
[2017-10-25 08:54] LABS: ALANINE AMINOTRANSFERASE 43 IU/L (9-52); ALKALINE PHOSPHATASE 96 IU/L (38-126); ANION GAP 11 mEq/L (8-16); ASPARTATE AMINOTRANSFERASE 44 IU/L (14-46); BILIRUBIN,TOTAL 0.8 mg/dL (0.1-1.4); BILIRUBIN-CONJUGATED 0.2 mg/dL (0.0-0.5); BILIRUBIN-UNCONJUGATED 0.6 mg/dL (0.0-1.1); CALCIUM 9.8 mg/dL (8.5-10.4); CARBON DIOXIDE 29 mEq/l (22-31); CHLORIDE 95 mEq/L (97-110); CREATININE 0.8 mg/dL (0.6-1.0); GLOMERULAR FILTRATION RATE > 60; GLUCOSE 121 mg/dL (70-100); POTASSIUM 3.7 mEq/L (3.5-5.2); SODIUM 135 mEq/L (134-144); TOTAL PROTEIN 7.1 g/dL (6.3-8.2)
[2017-10-25 09:30] LABS: COLOR YELLOW; LEUKOCYTE ESTERASE,URINE 3+ (NEGATIVE); NITRITE,URINE POSITIVE (NEGATIVE)
[2017-10-25 09:36] LABS: BACTERIA 1+ /hpf (NONE SEEN); WBC,URINE 50-182 /hpf (0-3)
[2017-10-25 09:40] LABS: RBC,URINE NONE SEEN /hpf (0-3)
[2017-10-25] MEDS ORDERED: ONDANSETRON DISINTEGRATING 4 MG TAB PO PRN (12:47)
[2017-10-25] MEDS ORDERED: ONDANSETRON 4 MG/2 ML VIAL IVP PRN (12:47)
[2017-10-25] MEDS ORDERED: traMADol 50 MG TAB PO PRN (12:50)
--- NOTE | 2017-10-25 13:45 | GHP ---
[f rep st] HISTORY AND PHYSICAL DATE OF ADMISSION: 10/25/2017 CHIEF COMPLAINT: Weakness, encephalopathy. HISTORY OF PRESENT ILLNESS: The patient is an 87-year-old woman with a history significant for parox ysmal atrial fibrillation, on chronic Coumadin therapy, hyponatremia and diastolic congestive heart f ailure. She is admitted with increasing weakness and a fall. The patient was recently admitted to [facility] for atrial fibrillation. She underwent cardioversion after 2 tries a week ago Friday. S vaishnavi then, she has been in sinus rhythm. After receiving the sedation the day after discharge, she h ad a good day. However, her daughter states she has been declining since then with increasing weakne ss. She lives in independent living with 24-hour care, and overnight she had increased urinary frequ ency, getting up about every hour to go to the bathroom. This morning when she got up to go to the b athroom, she fell, and her caregiver had to catch her and put her back in bed. Since then, she had e xtreme left shoulder pain, and they brought her into the emergency department for further evaluation and treatment. Evaluation did show normal electrolytes and a possible urinary tract infection, so vy reddy is being admitted for further evaluation of that. The patient's main concern at this time is severe left shoulder pain, which is new since her fall thi s morning. She never actually landed, but her caregiver did catch her awkwardly, and she felt immedi ate discomfort in her left shoulder and currently has some very mild low back discomfort. She denies any fever. She has chronic chills. She has chronic urinary frequency anywhere from 4-5 times a nig ht, however, had slightly more last night with poor sleep. She denies any significant chest pain, sh ortness of breath, abdominal pain. She has chronic lower extremity edema, which is dependent on how much salt tablet she needs to take to keep her sodium elevated. REVIEW OF SYSTEMS: A 10-point review of systems was done, including general, eyes, HEENT, heart, jazmín gs, abdomen, , musculoskeletal, neurologic, and psychiatric, with pertinent positives present in th e HPI. PAST MEDICAL HISTORY: 1. Hypertension. 2. Pulmonary hypertension. 3. Atrial fibrillation with chronic anticoagulation, on Coumadin and a permanent pacemaker. 4. Chronic hyponatremia, currently on Lasix and salt tablets. 5. Chronic edema. 6. Hypothyroidism. 7. Reactive airways disease. 8. Diastolic congestive heart failure exacerbated by atrial fibrillation. 9. Sick sinus syndrome. 10. Dementia. 11. Osteoporosis. 12. Incidental nodule. 13. History of breast cancer, status post left mastectomy. FAMILY HISTORY: Reviewed and noncontributory. SOCIAL HISTORY: She has 2 children. Her daughter lives nearby and checks on her frequently. She cu rrently lives in independent living and has a 24-hour caregiver. She does not use tobacco or alcohol . She wishes to be a [id number]. PHYSICAL EXAM: VITAL SIGNS: She has been afebrile, heart rate 65, blood pressure 159/80, respiratio ns 14. She is 97% on room air. GENERAL: She is a very pleasant 87-year-old in some mild distress d ue to shoulder pain. She is fairly lethargic and sleepy. HEENT: Pupils are small but equal. Extrao cular movements intact. Sclerae anicteric. Mucous membranes moist. Oropharynx is clear. NECK: [place] pple, without significant adenopathy. HEART: Regular. LUNGS: Clear bilaterally. No obvious wheez e or rhonchi. ABDOMEN: Soft. No masses. Mild urinary bladder distention. No CVA tenderness. EXT REMITIES: Trace edema, bilateral lower extremities. MUSCULOSKELETAL: Left shoulder is swollen and quite tender with any movement. Both of her hips have adequate range of motion without tenderness. The rest of her joints are fairly unremarkable. SKIN: Intact. Some scattered bruising, but no rash . PSYCHIATRIC: She has a fairly flat affect. NEUROLOGIC: She is alert and oriented to name and pl osvaldo. Generalized weakness. LABORATORY DATA: CBC is unremarkable. Chemistry shows a sodium of 135, normal renal function, kim l LFTs. Urinalysis has notable pyuria and 1+ bacteria, positive nitrites. INR is elevated at 2.74. ASSESSMENT AND PLAN: This 87-year-old presents with increased weakness and a fall, with a decline in function since her cardioversion a week and a half ago. Given her multiple comorbidities and decond itioned status, she will need a greater than 2 midnight stay for evaluation of this. Likely exacerba ting factors include possible urinary tract infection, as well as recent anesthesia for her cardiover fred. 1. Encephalopathy associated primarily with increased weakness and deconditioning. 2. Urinary tract infection. Her only symptom may be secondary to weakness. However, she does have urinary frequency. Will plan to continue treatment with ceftriaxone. Follow up on her culture. 3. Chronic hyponatremia. Very sensitive to the amount of salt tablets she takes, as well as her ting ly Lasix. We will cut her down from 3 tablets to 2-1/2 tablets daily and continue that and monitor h er sodium levels. She is quite sensitive to her sodium, and if it gets below 130, she becomes nausea rafaela and weak. 4. Atrial fibrillation, paroxysmal, followed by Dr. Amezcua, status post pacemaker placement on ant icoagulation with Coumadin. Will ask Pharmacy to monitor her warfarin and adjust dosing as needed. She is currently in sinus rhythm with a rate of 65, which is her pacemaker rate. 5. Sick sinus syndrome. 6. Hypertension. Her blood pressure is significantly elevated. I suspect this is from pain from he r shoulder. Will provide IV antihypertensives as needed. 7. Shoulder pain, left shoulder, with increasing pain, swelling. Noted swelling could certainly be from bleeding. We will start with an x-ray and consider further evaluation with Orthopedics yaneli joel on the findings. I suspect she may have a hemarthrosis with all the swelling I am noticing. 8. Dementia. 9. Hypothyroidism. Recent thyroid levels were within normal limits. 10. Pulmonary hypertension. 11. Diastolic congestive heart failure, appears to be at baseline. Will check chest x-ray. 12. Code status: The patient wishes to be do not resuscitate. I did discuss her declining status w ith her daughter. She has had multiple issues over the past year and will set up a palliative care m eeting with the family during this hospitalization. /[id number]/MODL
[2017-10-25] MEDS: ACETAMINOPHEN 325 MG TAB PO PRN ×2 (15:21→20:43)
[2017-10-25] MEDS: FUROSEMIDE 20 MG TAB PO SCH (16:37)
[2017-10-25] MEDS: SODIUM CHLORIDE 1,000 MG TAB PO SCH (16:37)
[2017-10-25] MEDS: POTASSIUM CL 10 MEQ TAB PO SCH (16:37)
[2017-10-25] MEDS: AMIODARONE HCL 200 MG TAB PO SCH (16:37)
--- NOTE | 2017-10-25 17:24 | ASMTCMCOM ---
CM Note CM Note Notes: Pt. is an 87-year-old woman in DNR status admitted after falling. Has encephalopathy, weakness, dementia, UTI, Afib, sick sinus syndrome, and HTN. Currently has [id number] paid for by daughter per team. Plan for a Palliative Care conference on either Friday or Friday per MD. CM to follow for d/c POC. Date Signed: 10/25/2017 05:23 PM Electronically Signed By:Zara Lora LCSW
[2017-10-25] MEDS ORDERED: SODIUM CHLORIDE 1,000 MG TAB PO SCH (18:00)
[2017-10-25] MEDS ORDERED: CALCIUM CARBONATE 500 MG CHEWABLE TAB PO PRN (19:47)
[2017-10-25] MEDS: BECLOMETHASONE QVAR 40 MDI IH SCH (21:04)
[2017-10-26 04:49] LABS: % IMMATURE GRANULYOCYTES 0.8 % (0.0-1.1); ABSOLUTE IMMATURE GRANULOCYTES 0.05 10^3/uL (0.00-0.10); ADD DIFF? NO; ADD MORPH? NO; ADD SCAN? NO; ATYPICAL LYMPHOCYTE FLAG 10 (0-99); FRAGMENT RBC FLAG 0 (0-99); HEMATOCRIT 33.6 % (38.0-47.0); HEMOGLOBIN 11.4 g/dL (12.6-16.3); LEFT SHIFT FLG 0 (0-99); LIPEMIA HEMOLYSIS FLAG 90 (0-99); MEAN CELL HEMOGLOBIN 33.1 pg (27.9-34.1); MEAN CELL HEMOGLOBIN CONCENTR. 33.9 g/dL (32.4-36.7); MEAN CELL VOLUME 97.7 fL (81.5-99.8); MEAN PLATELET VOLUME 8.7 fL (8.7-11.7); PLATELET CLUMPS FLAG 10 (0-99); PLATELET COUNT 232 10^3/uL (150-400); RED BLOOD CELL COUNT 3.44 10^6/uL (4.18-5.33); RED CELL DISTRIBUTION WIDTH 13.6 % (11.5-15.2)
[2017-10-26 04:59] LABS: ANION GAP 9 mEq/L (8-16); CALCIUM 9.3 mg/dL (8.5-10.4); CARBON DIOXIDE 27 mEq/l (22-31); CHLORIDE 100 mEq/L (97-110); CREATININE 0.8 mg/dL (0.6-1.0); GLOMERULAR FILTRATION RATE > 60; GLUCOSE 105 mg/dL (70-100); POTASSIUM 3.6 mEq/L (3.5-5.2); SODIUM 136 mEq/L (134-144)
[2017-10-26] MEDS: LEVOTHYROXINE 125 MCG TAB PO SCH (05:15)
--- NOTE | 2017-10-26 06:05 | PDMN ---
Medical Necessity Medical necessity: Pt meets INPT criteriai per MD and MCG Systemic or Infectious Condition GRG (est. LOS >2 MN for eval/tx of encephalopathy with increased weakness and deconditioning, UTI, s/p fall with L shoulder pain, swelling, L humerus fx on xray, htn with BP significantly elevated, afib s/p pacemaker placement/cardioversion on coumadin; hx chronic hyponatremia dementia , pulmonary htn, diastolic CHF per H&P.
[2017-10-26] MEDS: BECLOMETHASONE QVAR 40 MDI IH SCH ×2 (08:08→21:05)
[2017-10-26] MEDS: SODIUM CHLORIDE 1,000 MG TAB PO SCH ×2 (10:16→19:43)
[2017-10-26] MEDS: DOCUSATE SODIUM 100 MG CAP PO SCH (10:16)
[2017-10-26] MEDS: FUROSEMIDE 20 MG TAB PO SCH (10:16)
[2017-10-26] MEDS: AMIODARONE HCL 200 MG TAB PO SCH (10:16)
[2017-10-26] MEDS: ACETAMINOPHEN 325 MG TAB PO PRN ×2 (10:38→19:56)
--- NOTE | 2017-10-26 11:43 | GCON ---
[f rep st] CONSULTATION DATE OF CONSULTATION: 10/25/2017 REASON FOR CONSULT: Left shoulder injury. HISTORY OF PRESENT ILLNESS: The patient is an 87-year-old [id number] woman who sustained a fall on the day of admission, complaining of left shoulder pain. She denies any previous problems wit h her shoulder. PAST MEDICAL HISTORY: Extensive. PHYSICAL EXAMINATION: There is some diffuse swelling and tenderness about her left anterior shoulder girdle with some subcutaneous ecchymosis. She is very reluctant to move it. Her distal neurovascular exam is intact. IMAGING: AP and lateral radiographs show a humeral neck fracture with some nondisplaced extension in to the head. In a semi-upright position, there is favorable alignment of the fracture. ASSESSMENT: Left surgical neck humerus fracture. PLAN: Based on the minimally displaced nature, it was recommended that nonoperative treatment course be pursued. She will be placed in a sling and kept in an upright position as much as possible. Tod lerner will be recommended to be in approximately 2 weeks for repeat radiographs. /[id number]/MODL
[2017-10-26] MEDS ORDERED: SODIUM CHLORIDE 1,000 MG TAB PO SCH (12:00)
[2017-10-26] MEDS: MULTIVITAMINS 1 EACH TAB PO SCH (12:27)
[2017-10-26] MEDS: CHOLECALCIFEROL VIT D3 1,000 UNITS TAB PO SCH (12:27)
[2017-10-26] MEDS: CYANO/VITAMIN B12 1000 MCG TAB PO SCH (12:27)
[2017-10-26] MEDS: POTASSIUM CL 10 MEQ TAB PO SCH (12:28)
[2017-10-26] MEDS: ASCORBIC ACID 500 MG TAB PO SCH (12:28)
--- NOTE | 2017-10-26 12:57 | ASMTCMCOM ---
CM Note CM Note Notes: Per OT/PT, patient would likely benefit from SNF stay before going home (where she does have / care). Spoke with patient's daughter Linda who agrees with this plan. Patient has been to [facility] in the past and did well. Referral sent; they will begin insurance authorization process tomorrow. CM will follow. Date Signed: 10/26/2017 12:56 PM Electronically Signed By:Martha Mccall RN
--- NOTE | 2017-10-26 14:23 | HOSPPROG ---
Hospitalist Progress Note Assessment/Plan: 87 yo with multiple medical issues is admitted for weakness and shoulder pain. She is found to have a minimally displaced humeral fracture and evaluated by Dr. Sandoval, She has a UTI and is awaiting cultures while on ceftriaxone # humeral fracture. Appreciate consult by Dr. Webster in, does not need surgery. * Continue immobilization with a sling * Will need rehab post hospitalization # weakness and deconditioning exacerbated by possible UTI. * Follow-up cultures * Continue ceftriaxone # hyponatremia, sodium seem to improve when she is in the hospital and she admits that she does drink more water at home. * Decrease the salt tabs * Continue to follow # dementia, mild # AFib on anticoagulation and rate control. # hypothyroidism # hypertension # reactive airways disease # pulmonary hypertension # chronic edema Subjective: Pain better controlled while shoulder is immobilized. Still hurts. No chest pain or shortness of breath Objective: Vital Signs Temp Pulse Resp BP Pulse Ox 36.4 C 65 16 152/85 H 92 10/26/17 11:25 10/26/17 11:25 10/26/17 11:25 10/26/17 11:25 10/26/17 11:25 Laboratory Results 10/26/17 04:25 10/26/17 04:25 PT 28.9 SEC (12.0-15.0) H 10/25/17 08:25 INR 2.74 (0.83-1.16) H 10/25/17 08:25 - Physical Exam Constitutional: chronically ill appearing, uncomfortable Ears, Nose, Mouth, Throat: moist mucous membranes Cardiovascular: regular rate and rhythym, edema (Trace) Respiratory: no respiratory distress Gastrointestinal: normoactive bowel sounds ICD10 Worksheet Patient Problems: Problems Problem Status Onset Atrial fibrillation Acute Hip fracture Acute UTI (urinary tract infection) Acute Fall Acute Weakness Acute Dizzy Acute
[2017-10-26 15:11] LABS: INR 2.66 (0.83-1.16); PROTIME(PATIENT) 28.3 SEC (12.0-15.0)
[2017-10-26] MEDS ORDERED: WARFARIN SODIUM 5 MG TAB PO SCH ×2 (17:00)
[2017-10-26] MEDS: WARFARIN SODIUM 5 MG TAB PO SCH (17:42)
[2017-10-27] MEDS: LEVOTHYROXINE 125 MCG TAB PO SCH (04:30)
[2017-10-27] MEDS ORDERED: hydrALAZINE 20 MG/ML VIAL IVP PRN (04:38)
[2017-10-27 05:36] LABS: INR 2.42 (0.83-1.16); PROTIME(PATIENT) 26.3 SEC (12.0-15.0)
[2017-10-27 05:38] LABS: ANION GAP 11 mEq/L (8-16); CALCIUM 9.3 mg/dL (8.5-10.4); CARBON DIOXIDE 26 mEq/l (22-31); CHLORIDE 100 mEq/L (97-110); CREATININE 0.8 mg/dL (0.6-1.0); GLOMERULAR FILTRATION RATE > 60; GLUCOSE 106 mg/dL (70-100); POTASSIUM 3.7 mEq/L (3.5-5.2); SODIUM 137 mEq/L (134-144)
[2017-10-27] MEDS: AMIODARONE HCL 200 MG TAB PO SCH (08:43)
[2017-10-27] MEDS: DOCUSATE SODIUM 100 MG CAP PO SCH (08:43)
[2017-10-27] MEDS: SODIUM CHLORIDE 1,000 MG TAB PO SCH ×2 (08:44→17:09)
[2017-10-27] MEDS: FUROSEMIDE 20 MG TAB PO SCH (08:44)
[2017-10-27] MEDS: BECLOMETHASONE QVAR 40 MDI IH SCH ×2 (09:52→21:33)
[2017-10-27] MEDS: CHOLECALCIFEROL VIT D3 1,000 UNITS TAB PO SCH (12:32)
[2017-10-27] MEDS: MULTIVITAMINS 1 EACH TAB PO SCH (12:32)
[2017-10-27] MEDS: POTASSIUM CL 10 MEQ TAB PO SCH (12:32)
[2017-10-27] MEDS: CYANO/VITAMIN B12 1000 MCG TAB PO SCH (12:32)
[2017-10-27] MEDS: ASCORBIC ACID 500 MG TAB PO SCH (12:32)
--- NOTE | 2017-10-27 12:51 | HOSPPROG ---
Hospitalist Progress Note Assessment/Plan: 87 yo with multiple medical issues is admitted for weakness and shoulder pain. She is found to have a minimally displaced humeral fracture and evaluated by Dr. Sandoval, She has a UTI and is awaiting cultures while on ceftriaxone # humeral fracture. Appreciate consult by Dr. Sandoval, does not need surgery. * Continue immobilization with a sling * Will need rehab post hospitalization * Fu with Dr. Sandoval and Xrays 2 weeks. # weakness and deconditioning exacerbated by possible UTI. * Follow-up cultures * Continue ceftriaxone # hyponatremia, sodium seem to improve when she is in the hospital and she admits that she does drink more water at home. * Decrease the salt tabs * Continue to follow # dementia, mild # AFib on anticoagulation and rate control. # hypothyroidism # hypertension # reactive airways disease # pulmonary hypertension # chronic edema Will discuss with patients daughter about possible SNF. Given recurrent readmissions and fractures with falls I think it would be prudent to have the daughter meet with Palliative Care to talk about end of life goals, etc. Subjective: looks more comfortable. Has her shoulder in a sling Objective: Vital Signs Temp Pulse Resp BP Pulse Ox 36.8 C 65 16 159/85 H 98 10/27/17 11:17 12 11:17 10/27/17 11:17 10/27/17 11:17 10/27/17 11:17 Laboratory Results 10/26/17 04:25 10/27/17 04:23 PT 26.3 SEC (12.0-15.0) H 10/27/17 04:23 INR 2.42 (0.83-1.16) H 10/27/17 04:23 - Time Spent With Patient Time Spent with Patient: greater than 35 minutes (discussed prognosis and outpatient plan of care, poss hospice) Time Spent with Patient: Greater than 35 minutes spent on this patients care, greater than 50% of time spent counseling, educating, and coordinating care regarding the above mentioned plan. - Physical Exam Constitutional: chronically ill appearing, uncomfortable Cardiovascular: regular rate and rhythym Respiratory: no respiratory distress Gastrointestinal: soft, non-tender abdomen Musculoskeletal: joint tenderness (Left shoulder, immobilized in a sling.) ICD10 Worksheet Patient Problems: Problems Problem Status Onset Atrial fibrillation Acute Hip fracture Acute UTI (urinary tract infection) Acute Fall Acute Weakness Acute Dizzy Acute
--- NOTE | 2017-10-27 14:56 | PDPCPN ---
Palliative Care Progress Note Assessment/Plan: Referring provider: Dr Brown Reason for consult: Complex medical decision making Symptom control HPI: Lizett Lujan is a 87 yo female with PMH dementia, diastolic CHF, HTn, a fib, SSS s/p pacemaker, and pul HTN admitted to the hospital for increased weakness and fall. Fell friday morning while trying to go to the bathroom. Left arm pain after fall prompted visit to the ED where she was found to have a left humeral fracture being treated medically. Also being treated for possible UTI. Per daughter Linda she has been weaker since her cardioversion on 10/13. She notes she has always been weaker on her left leg after her hip fracture in 2016. Palliative care consulted for complex medical decision making. Met with daughter Linda and Lizett at her bedside this afternoon. Lizett stated what means quality of life to her is being able to go for walks outside, watch tv programs (especially news shows), and participating in social activities at her independent living facility. She currently lives at [facility] and has 24/7 caregiver support due to her fall risk and need for 24/7 supervision. She has some mild dementia but is still able to make some decisions. We discussed the difficulties with recovery after a fall. Linda is also concerned with her ability to not have further falls as she is not as able to use her walker without her left arm. Lizett would like to try rehab to see if she can improve in strength to support her goals of being in independent living and taking daily walks. Discussed if she got worse or declined in the future what she may consider then and she just stated "I will have to take more rests then" . Linda feels the weakness has been ongoing for the past couple of weeks and therefore may not be related to a possible UTI. Discussed options for care including hospice care. Linda does not feel another cardioversion if needed would be of benefit to her mom. We also discussed possibilities for not treating future infections if the goals switch to only comfort care. Right now she is DNR/DNI selective measures and while she would not want major procedures or interventions each decision is thought about including decisions to rehospitalize if needed. Assessment: Physical: - Pain: left arm pain - would recommend scheduling tylenol 500 mg BID to help with pain - ortho following, arm in sling - tramadol PRN for severe pain - weakness/falls - PT/OT - nursing support - fall precautions Emotional/psychological: Mild confusion: - maintain normal routine (likes to nap around 1 pm) Advanced Care Planning: Is patient decisional?: Yes with help Code Status: DNR/DNI MD MILLER: daughter Linda is MDPOA. Plan: Rehab at [facility]. Depending on how she does once finished at rehab may consider palliative care vs hospice care. Subjective: i feel ok Objective: Social History: . Has 1 daughter involved and local. Lives at [facility]. Enjoys going for walks and engaging both her mind and physical health. Medication list reviewed ROS: General: fatigue, weakness ENT: negative Resp: negative GI: poor appetite : negative MS: left arm pain Skin: negative Neuro: negative Psych: forgetfulness Functional assessment: PPS: 50% Functional status: needs assistance with most ADLs. Vital Signs Temp Pulse Resp BP Pulse Ox 36.8 C 65 16 159/85 H 98 10/27/17 11:17 10/27/17 11:17 10/27/17 11:17 10/27/17 11:17 10/27/17 11:17 Laboratory Results 10/26/17 04:25 10/27/17 04:23 PT 26.3 SEC (12.0-15.0) H 10/27/17 04:23 INR 2.42 (0.83-1.16) H 10/27/17 04:23 Physical Exam - Physical Exam General Appearance: alert, no apparent distress Respiratory: No accessory muscle use, No decreased breath sounds Skin: normal color, warm/dry Extremities: No pedal edema Neuro/Psych: alert, oriented x 3, other (some forgetfullness) ICD10 Worksheet Patient Problems: Problems Problem Status Onset Dizzy Acute Fall Acute Palliative care encounter Acute UTI (urinary tract infection) Acute Weakness Acute Atrial fibrillation Acute Hip fracture Acute - ICD10 Problem Qualifiers (1) Palliative care encounter
[2017-10-27] MEDS: WARFARIN SODIUM 5 MG TAB PO SCH (17:10)
[2017-10-27] MEDS: ACETAMINOPHEN 500 MG TAB PO SCH ×2 (17:13→20:53)
[2017-10-28] MEDS: LEVOTHYROXINE 125 MCG TAB PO SCH (04:49)
[2017-10-28 05:24] LABS: INR 2.29 (0.83-1.16); PROTIME(PATIENT) 25.2 SEC (12.0-15.0)
[2017-10-28 08:09] VITALS: RESP 18; TEMP 97.9
[2017-10-28] MEDS: BECLOMETHASONE QVAR 40 MDI IH SCH (08:47)
[2017-10-28] MEDS: AMIODARONE HCL 200 MG TAB PO SCH (08:49)
[2017-10-28] MEDS: FUROSEMIDE 20 MG TAB PO SCH (08:49)
[2017-10-28] MEDS: SODIUM CHLORIDE 1,000 MG TAB PO SCH (08:49)
[2017-10-28] MEDS: DOCUSATE SODIUM 100 MG CAP PO SCH (08:49)
[2017-10-28] MEDS: ACETAMINOPHEN 500 MG TAB PO SCH (08:50)
[2017-10-28 09:08] LABS: ANION GAP 8 mEq/L (8-16); CARBON DIOXIDE 27 mEq/l (22-31); CHLORIDE 99 mEq/L (97-110); CREATININE 0.7 mg/dL (0.6-1.0); GLOMERULAR FILTRATION RATE > 60; GLUCOSE 98 mg/dL (70-100); POTASSIUM 3.6 mEq/L (3.5-5.2); SODIUM 134 mEq/L (134-144)
[2017-10-28] MEDS ORDERED: SENNOSIDES/DOCUSATE SODIUM TAB PO PRN (09:59)
--- NOTE | 2017-10-28 10:06 | PDIAF ---
- Diagnosis Diagnosis: UTI, humerous fracture. afib, anticoagulation Code Status: Do Not Resuscitate - Medication Management Discharge Medications: Medications to Continue on Transfer Multivitamins [Multivitamin (*)] 1 each PO DAILY@12 07/29/12 [Last Taken ] Beclomethasone Qvar 40 [Qvar 40 (*)] 2 puffs IH BID 12/25/14 [Last Taken ] Ascorbic Acid [Vitamin C 500 mg (*)] 500 mg PO DAILY@07/31/15 [Last Taken 12/10] Cholecalciferol Vit D3 [Vitamin D3 (*)] 1,000 units PO DAILY@12 07/31/15 [Last Taken 10/24/17] Herbals/Supplements -Info Only 1 ea PO DAILY 07/31/15 [Last Taken 10/24/17] Warfarin Sodium [Coumadin 5MG (*)] 5 mg PO SUMOTUWEFRSA@16 07/31/15 [Last Taken 10/24/17] Sodium Chloride [Salt Tablet] 1,000 mg PO TIDMEAL tab 06/03/17 [Last Taken 12/10] Amiodarone HCl [Pacerone (*)] 100 mg PO DAILY 10/13/17 [Last Taken 10/24/17] Cyanocobalamin [Vitamin B12 (*)] 1,000 mcg PO DAILY@1200 10/13/17 [Last Taken ] Docusate Sodium [Colace 100 MG (*)] 100 mg PO DAILY 10/13/17 [Last Taken ] Furosemide [Lasix 20 MG (*)] 20 mg PO DAILY 10/13/17 [Last Taken 10/24/17] Levothyroxine [Synthroid 125 mcg (*)] 125 mcg PO DAILY06 10/13/17 [Last Taken ] Potassium Cl [Klor-Con 10 meq (RX)] 10 meq PO DAILY@12 10/13/17 [Last Taken 12/10] Warfarin Sodium [Coumadin 5MG (*)] 7.5 mg PO TH@17 10/25/17 [Last Taken 10/23/17 ] Acetaminophen [Tylenol ES 500 mg (*)] 1,000 mg PO TID tab 10/28/17 [Last Taken Unknown] Cephalexin 500 mg PO BID #10 capsule 10/28/17 [Last Taken Unknown] Sennosides/Docusate Sodium [Senna-Docusate Sodium Tablet] 1 each PO BID PRN #1 tablet 10/28/17 [Last Taken Unknown] Discharge Medications: Refer to the Discharge Home Medication list for PRN reason. - Orders Services needed: Registered Nurse, Certified Property Inspector, Master Operations Examiner , Physical Therapy, Occupational Therapy Diet Recommendation: no restrictions on diet Diet Texture: Regular Texture Diet - Labs/Radiology BMP Date: 11/03/17 PT/INR Date: 10/30/17 (repeat, 3x week) - Follow Up Care Current Providers and Referrals: Patient,NotPresent [Unknown] - As per Instructions Jean Carlos Sandoval MD [Medical Doctor] -
--- NOTE | 2017-10-28 10:21 | GDS ---
[f rep st] DISCHARGE SUMMARY CONSULTATIONS: Palliative Care and Jean Carlos Sandoval from Orthopedics. HOSPITAL COURSE: Ms. Lujan is a very sweet 87-year-old with a history significant for atrial fibri llation, mild dementia, chronic anticoagulation, hypertension, and pulmonary hypertension. She also has chronic hyponatremia. She is admitted with increased weakness and shoulder pain. While at home, she was getting weaker and had fallen while getting up from the toilet and sustained a left humeral fracture. The caregiver was there and felt that she caught the patient in time, but she still did garay stain a new fracture. She was admitted to the hospital. Evaluation did reveal a possible urinary tr act infection and she was placed on appropriate antibiotics. She worked with physical therapy and [facility] Orthopedic surgery, who felt the fracture was nonsurgical and recommended an immobilizer with follo wup. The patient was eating and drinking well in the hospital. Her pain was controlled with schedul ed Tylenol and she was too weak to return home to her assisted living apartment and will need skilled rehab after discharge. There were no other complications during her hospital course. Condition on discharge good. She is afebrile. Heart rate is stable. INR was stable at 2.29. Sodium has been st able at 134 with normal renal function. DISCHARGE MEDICATIONS: Please see discharge medication form. She will complete 5 more days of cepha lexin. FOLLOWUP INSTRUCTION: She will be discharged to [facility] for ongoing rehab and physical therapy. She also needs to follow up with Dr. Sandoval in 2 weeks at [facility] f or followup of her humerus fracture. Total time spent with patient on day of discharge and coordination of care is 35 minutes. /[id number]/MODL
--- NOTE | 2017-10-28 11:01 | ASMTCMCOM ---
CM Note CM Note Notes: Palliative meeting conducted yesterday. Daughter would like pt to go to rehab and revisit the idea of palliative after rehab. CM spoke w/ Dr. Brown regarding d/c POC. Pt is being discharged today to [facility]. CM sent d/c orders. KRISTA provided CLAUDIA Carreon phone number to give report to [facility]. Pt is being transported via [facility] stretcher. CM completed PCS form and a copy is in pts chart. CM available for changes. Plan: [facility] Date Signed: 10/28/2017 11:00 AM Electronically Signed By:PERCY Frank
[2017-10-28 11:19] VITALS: PULSE 65; O2SAT 92
[2017-10-28] MEDS: ASCORBIC ACID 500 MG TAB PO SCH (12:17)
[2017-10-28] MEDS: MULTIVITAMINS 1 EACH TAB PO SCH (12:17)
[2017-10-28] MEDS: CHOLECALCIFEROL VIT D3 1,000 UNITS TAB PO SCH (12:17)
[2017-10-28] MEDS: CYANO/VITAMIN B12 1000 MCG TAB PO SCH (12:17)
[2017-10-28] MEDS: POTASSIUM CL 10 MEQ TAB PO SCH (12:18)
[2017-10-28 14:25] VITALS: BP 145/87
--- NOTE | 2017-10-28 15:29 | ASDISCHSUM ---
Discharge Information Plan Status:SNF Medically Cleared to Leave:10/27/2017 Discharge Date:10/28/2017 02:41 PM CM D/C Disposition: ADT D/C Disposition:Care Home Facility Projected Discharge Date:10/28/2017 11:00 AM Transportation at D/C: Discharge Delay Reason: Follow-Up Date:10/28/2017 11:00 AM Discharge Slot: Final Diagnosis: Placement Information Referral Type:*Long-Term/SNF Referral ID:[id number] Provider Name:[facility] Address 1:[address] Address 2: City:[place] Selection Factors: State:[place] Patient Contact Information Contact Name:VERONICACATHYErasmo Relationship:Daughter Address:[address] City:[place] Alternate Phone: State/Zip Code:[place] [address] Email: Financial Information Financial Class:Medicare Advantage Plans Primary Plan Desc:[facility] Primary Plan Number:[id number] Secondary Plan Desc: Secondary Plan Number: Assessment Information [facility] CM Progress Note CM Note CM Note Notes: Pt. is an 87-year-old woman in DNR status admitted after falling. Has encephalopathy, weakness, dementia, UTI, Afib, sick sinus syndrome, and HTN. Currently has [id number] paid for by daughter per team. Plan for a Palliative Care conference on either Friday or Friday per MD. VELASCO to follow for d/c POC. Date Signed: 10/25/2017 05:23 PM Electronically Signed By:Zara Lora LCSW [facility] KRISTA Progress Note CM Note CM Note Notes: Per OT/PT, patient would likely benefit from SNF stay before going home (where she does have 16/06 care). Spoke with patient's daughter Linda who agrees with this plan. [facility] and did well. Referral sent; they will begin insurance authorization process tomorrow. CM will follow. Date Signed: 10/26/2017 12:56 PM Electronically Signed By:Martha Mccall RN [facility] Progress Note CM Note CM Note Notes: Palliative meeting conducted yesterday. Daughter would like pt to go to rehab and revisit the idea of palliative after rehab. CM spoke w/ Dr. Brown regarding d/c POC. Pt is being discharged today to [facility]. CM sent d/c orders. CM provided CLAUDIA Carreon phone number to give report to [facility]. Pt is being transported via [employer] stretcher. CM completed PCS form and a copy is in pts chart. CM available for changes. Plan: [facility] Date Signed: 10/28/2017 11:00 AM Electronically Signed By:PERCY Frank Intervention Information Intervention Type:*Incorrect Registration Date of Service:10/25/2017 05:00 PM Patient Type:Inpatient Staff Member:CLAUDIA Fields, Renuka Hours: Discipline: Severity: Comment: Intervention Type:*IM-Signed Date of Service:10/28/2017 11:44 AM Patient Type:Inpatient Staff Member:Pamela Shah Hours: Discipline: Severity: Comment:
[2017-10-30] MEDS ORDERED: WARFARIN SODIUM 5 MG TAB PO SCH (17:00)
== END 2017-10-28 14:41 | DRG 563 ==
LOC: EDUNIT# → OBSVTOIN 10:02 → F3E 11:15
PROVIDERS: ADMIT Internal Medicine; ATTEND Internal Medicine
DX: S49.002A Unspecified physeal fracture of upper end of humerus, left arm, initial encounter for closed fracture (principal); N39.0 Urinary tract infection, site not specified; E87.1 Hypo-osmolality and hyponatremia; I48.0 Paroxysmal atrial fibrillation; E03.9 Hypothyroidism, unspecified; I49.5 Sick sinus syndrome; R29.6 Repeated falls; I11.0 Hypertensive heart disease with heart failure; I50.32 Chronic diastolic (congestive) heart failure; Z95.0 Presence of cardiac pacemaker; I27.20 Pulmonary hypertension, unspecified; F03.90 Unspecified dementia, unspecified severity, without behavioral disturbance, psychotic disturbance, mood disturbance, and anxiety; W01.0XXA Fall on same level from slipping, tripping and stumbling without subsequent striking against object, initial encounter; Z79.01 Long term (current) use of anticoagulants; Y92.129 Unspecified place in nursing home as the place of occurrence of the external cause; Z66 Do not resuscitate
CPT/HCPCS: 96365; 97161-GP; 97166-GO; 97530-GP; 97535-GO; G8978-GP-CM; G8979-GP-CJ; G8987-GO-CL; G8988-GO-CJ; J0696; J2405